=== PATIENT | male | born 1945 | race Caucasian/White ===

== ENCOUNTER → 2020-08-01 10:37 | Outpatient (BNVA) | payer SELFPAY | PROVIDERS: Visit Provider Family Medicine | DX: I49.9 Cardiac arrhythmia, unspecified (principal); I10 Essential (primary) hypertension; Z13.220 Encounter for screening for lipoid disorders; Z13.6 Encounter for screening for cardiovascular disorders | CPT/HCPCS: 80053; 80061; 83735; 84443; 85025 ==

== ENCOUNTER → 2020-12-26 14:00 | Outpatient (BNVA) | payer SELFPAY | PROVIDERS: Visit Provider Family Medicine | DX: I12.9 Hypertensive chronic kidney disease with stage 1 through stage 4 chronic kidney disease, or unspecified chronic kidney disease (principal); J30.9 Allergic rhinitis, unspecified; G44.209 Tension-type headache, unspecified, not intractable; N18.2 Chronic kidney disease, stage 2 (mild); J30.1 Allergic rhinitis due to pollen | CPT/HCPCS: 80048 ==

== ENCOUNTER → 2021-03-28 14:37 | Outpatient (BNVA) | payer SELFPAY | PROVIDERS: Visit Provider Family Medicine | DX: I10 Essential (primary) hypertension (principal); I49.3 Ventricular premature depolarization; R73.09 Other abnormal glucose; Z13.1 Encounter for screening for diabetes mellitus; F17.200 Nicotine dependence, unspecified, uncomplicated; N18.2 Chronic kidney disease, stage 2 (mild) | CPT/HCPCS: 80053; 83036; 83735; 84443; 85025 ==

== ENCOUNTER 2021-05-24 10:44 | Outpatient (CLI) | payer SELFPAY ==
[2021-05-24 10:55] VITALS: BMI 22.1
--- NOTE | 2021-05-24 11:10 | ECG_ITS ---
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 Interpretive Statements NAME OF STUDY: LEXISCAN SESTAMIBI STRESS TEST INDICATION: Chest Pain PROCEDURE: At the baseline, the blood pressure was 164/83 mmHg, oxygen saturation 98% with a heart rate of 57 bpm. The electrocardiogram showed sinus bradycardia, right axis deviation with nonspecific T wave inversion.. The Lexiscan was infused over a period of 20 seconds. A total of 0.4 milligrams of Lexiscan was infused. The stress phase was continued for a total of 5 minutes. Heart rate at the end of the stress phase was 73 bpm, oxygen saturation 98% with a blood pressure of 124/73 mmHg. The EKG at the peak infusion revealed sinus rhythm with frequent PVCs in bigeminal pattern. No significant ST-T wave changes.. The study was terminated due to protocol completion. Sestamibi was injected 20 seconds after the Lexiscan infusion. Blood pressure at the end of the recovery phase was 146/71 mmHg, oxygen saturation 98% with a heart rate of 69 beats per minute. CONCLUSION: 1. No significant EKG changes with the LexiScan infusion 2. No LexiScan induced chest pain. Frequent PVCs were noted during stress and in recovery. 3. Normal blood pressure and heart rate response. 4. Sestamibi/sestamibi perfusion scan pending; see separate report. Electronically Signed On 05-29-2021 12:48:34 CDT by Seema Ochoa M.D. [id number]
--- NOTE | 2021-05-24 11:11 | NMCV_ITS ---
NM santhosh perf SPECT r/s* [id number] Jay Sharp Age: 76 Gender: M : 1945 Exam Date: 05/24/2021 12:02 Ordering Phys: Seema Ochoa MD ([email or web address]) Technologist: LINDA Atwood Exam Location: [facility] Indications: HYPERTENSION STRESS TEST Please see separate stress test report in [facility] for full findings IMAGE PROTOCOL Rest/Stress 1 Lexiscan Day Radiopharmaceutical Dose (mCi) Administration Site Administered by Rest: Tc-99m 10.5 IV LINDA Atwood Sestamibi Stress:Tc-99m 32.5 IV LINDA Haywood Sestamibi Rest: 24-May-2021 60 Discovery 630 Stress: 24-May-2021 30 Discovery 630 0.4mg Lexiscan. Supine position only as patient was unable to lay prone. SPECT RESULTS Technical Quality: Excellent Raw Data Analysis: Normal Image Corrections: No attenuation or motion correction applied Summed Stress Score: 2 Summed Rest Score: 2 Summed Difference Score: 0 PERFUSION FINDINGS Small size perfusion abnormality of mild severity of apical inferior and apical galindo on rest and stress images. FUNCTIONAL RESULTS (calculated via Gated SPECT) Stress Image LV EF (%): 73 Stress EDV (mL):102 TID: 1 Stress ESV (mL):28 FUNCTIONAL FINDINGS: The left ventricle is normal in size. Transient Ischemia Dilatation of 1. There is normal left ventricular systolic function. The left ventricular ejection fraction is normal with a value of 73%. There is normal left ventricular wall thickening with no regional wall motion abnormality. Normal end-diastolic and end-systolic volumes. IMPRESSIONS 1. Small sized fixed perfusion abnormality of mild severity of apical inferior and apical galindo. 2. This may represent old myocardial infarction and right coronary artery territory or attenuation artifact. 3. Overall left ventricular systolic function is normal without regional wall motion abnormalities, LVEF=73%. 4. EKG portion of the study will be reported separately. 5. No coronary ischemia based on the study. Seema Ochoa MD (Electronically Signed) Final Date: 26 May 2021 18:10 S
[2021-05-24 12:50] VITALS: BP 146/71; PULSE 73
[2021-05-24] MEDS: regadenoson 0.4 Mg/5 ml Syringe IVP (12:52)
== END 2021-05-24 10:45 | disposition home or self-care (01) ==
PROVIDERS: PCP Family Medicine; Visit Provider Internal Medicine Cardiovascular Disease
DX: R06.02 Shortness of breath (principal); R00.2 Palpitations; R07.9 Chest pain, unspecified; I10 Essential (primary) hypertension; R94.39 Abnormal result of other cardiovascular function study
CPT/HCPCS: 78452; 93017; A9500; J2785

== ENCOUNTER 2021-06-28 14:50 | Outpatient (CLI) | payer SELFPAY ==
--- NOTE | 2021-06-28 14:53 | USCV_ITS ---
Jay Sharp Age: 76 Gender: M : 1945 Exam Date: 06/28/2021 15:10 Ordering Phys: Seema Ochoa MD ([email or web address]) Technologist: Johny Muller [place] [facility] [place]: Frequent PVC's BP: 170 / 80 HR: 47 Rhythm: Sinus Technical Quality: Good MEASUREMENTS (Male / Female) Normal Values 2D ECHO LV Diastolic Diameter PLAX 5.1 cm 4.2 - 5.9 / 3.9 - 5.3 cm LV Systolic Diameter PLAX 3.5 cm IVS Diastolic Thickness 0.7 cm 0.6 - 1.0 / 0.6 - 0.9 cm IVS Systolic Thickness 1.4 cm LVPW Diastolic Thickness 1.0 cm 0.6 - 1.0 / 0.6 - 0.9 cm LVPW Systolic Thickness 1.2 cm LVOT Diameter 2.0 cm LV Ejection Fraction 2D Teich 46.9 % LV Ejection Fraction MOD 2C 52.4 % LV Ejection Fraction 2C AL 51.9 % LA Diameter 3.1 cm LA Width 4.5 cm LA Height 5.1 cm RA Width 3.6 cm RA Height 5.6 cm Aorta at Sinotubular Diameter 2.8 cm DOPPLER AV Peak Velocity 121.0 cm/s LVOT Peak Velocity 72.0 cm/s AV Area Cont Eq vti 2.2 cm squared AV Area Cont Eq pk 1.9 cm squared MV Area PHT 5.0 cm squared Mitral E to A Ratio 0.9 MV E' Velocity 50.0 cm/s Mitral E to MV E' Ratio 9.1 Mitral E to LV E' Lateral Ratio 11.8 Mitral E to LV E' Septal Ratio 7.4 TR Peak Velocity 263.7 cm/s TR Peak Gradient 27.8 mmHg TV Peak E Velocity 78.0 cm/s Right Atrial Pressure 3.0 mmHg Pulmonary Artery Systolic Pressu 30.8 mmHg FINDINGS Left Ventricle Normal left ventricular size, systolic function and wall thickness, with no regional wall motion abnormalities. Left ventricular ejection fraction is estimated at 55-60 %. Normal diastolic function. Right Ventricle Normal right ventricular size and systolic function. Right ventricular systolic pressure 30.8 mmHg. Right Atrium Normal right atrial size. Right atrial pressure estimated at 3 mm Hg. Left Atrium Mildly increased left atrial size. Mitral Valve Structurally normal mitral valve. No mitral valve stenosis. Mild to moderate mitral valve regurgitation. Aortic Valve Structurally normal trileaflet aortic valve. No aortic valve stenosis. No aortic valve regurgitation. Tricuspid Valve Structurally normal tricuspid valve. No tricuspid valve stenosis. Mild tricuspid valve regurgitation. Pulmonic Valve Structurally normal pulmonic valve. No pulmonary valve stenosis. Mild pulmonary valve regurgitation. Pericardium No pericardial effusion. Aorta Normal size aortic root and proximal ascending aorta. Normal- sized inferior vena cava with normal respiratory variation. CONCLUSIONS 1. Normal left ventricular size, systolic function and wall thickness, with no regional wall motion abnormalities. Left ventricular ejection fraction is estimated at 55-60 %. Normal diastolic function. 2. Mild pulmonary and tricuspid valve regurgitation. 3. Mild to moderate mitral valve regurgitation. 4. Pulmonary artery pressure estimated at 31 mm Hg. 5. No prior similar studies to compare. Seema Ochoa MD (Electronically Signed) Final Date: 02 July 2021 07:33 S
== END 2021-06-28 14:51 | disposition home or self-care (01) ==
LOC: RAD 14:52
PROVIDERS: PCP Family Medicine; Visit Provider Internal Medicine Cardiovascular Disease
DX: I49.3 Ventricular premature depolarization (principal); I08.1 Rheumatic disorders of both mitral and tricuspid valves; I37.1 Nonrheumatic pulmonary valve insufficiency; R06.02 Shortness of breath
CPT/HCPCS: 93306

== ENCOUNTER → 2021-07-05 09:58 | Outpatient (BNVA) | payer SELFPAY | PROVIDERS: PCP Family Medicine; Visit Provider Family Medicine | DX: D56.9 Thalassemia, unspecified (principal); Z13.220 Encounter for screening for lipoid disorders; Z13.6 Encounter for screening for cardiovascular disorders; N18.2 Chronic kidney disease, stage 2 (mild); I12.9 Hypertensive chronic kidney disease with stage 1 through stage 4 chronic kidney disease, or unspecified chronic kidney disease | CPT/HCPCS: 80048; 80061; 83735; 83880; 85007; 85027 ==

== ENCOUNTER → 2021-10-06 10:12 | Outpatient (BNVA) | payer OTHER, SELFPAY | PROVIDERS: PCP Family Medicine; Visit Provider Emergency Medicine | DX: Z20.822 Contact with and (suspected) exposure to COVID-19 (principal) | CPT/HCPCS: 87635 ==

== ENCOUNTER → 2021-12-27 11:36 | Outpatient (BNVA) | payer SELFPAY | PROVIDERS: PCP Family Medicine; Visit Provider Internal Medicine Cardiovascular Disease | DX: I10 Essential (primary) hypertension (principal); Z51.81 Encounter for therapeutic drug level monitoring; Z79.899 Other long term (current) drug therapy | CPT/HCPCS: 80048; 80076; 84443 ==

== ENCOUNTER → 2022-01-18 09:07 | Outpatient (BNVA) | payer SELFPAY | PROVIDERS: PCP Family Medicine; Visit Provider Family Medicine | DX: N18.2 Chronic kidney disease, stage 2 (mild) (principal) | CPT/HCPCS: 80048 ==

== ENCOUNTER → 2022-03-13 13:48 | Outpatient (BNVA) | payer SELFPAY | PROVIDERS: PCP Family Medicine; Visit Provider Internal Medicine | DX: N18.9 Chronic kidney disease, unspecified (principal); I10 Essential (primary) hypertension; Z79.899 Other long term (current) drug therapy | CPT/HCPCS: 80069; 82310; 82570; 82652; 83735; 83970; 84156; 85025 ==

== ENCOUNTER 2022-03-15 11:15 | Observation (INO) | payer SELFPAY ==
[2022-03-15] VITALS (10 sets, daily range): BP systolic 110–150; BP diastolic 57–71; PULSE 63–82; RESP 16–19; TEMP 36.8–37; O2SAT 95–99; BMI 21.5; BMI 21.9
--- NOTE | 2022-03-15 11:32 | ECG_ITS ---
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 Measurements Intervals [place] Rate: 68 P: 58 MS: 209 QRS: 101 QRSD: 114 T: 68 QT: 393 QTc: 420 Interpretive Statements SINUS RHYTHM RIGHT AXIS DEVIATION [QRS AXIS > 100] MODERATE INTRAVENTRICULAR CONDUCTION DELAY [110+ ms QRS DURATION] INTERPRETATION BASED ON A DEFAULT AGE OF 40 YEARS No previous ECG available for comparison Electronically Signed On 03-16-2022 12:20:52 CDT by Maxwell Shaver M.D. [id number]
[2022-03-15 12:08] LABS: Alanine Aminotransferase 19 U/L (0-41); Albumin Level 4.6 g/dL (3.5-5.2); Alkaline Phosphatase 75 IU/L (40-130); Anion Gap 20.6 (5-19); Aspartate Amino Transferase 19 U/L (0-40); Blood Urea Nitrogen 60 mg/dL (8-23); Calcium 9.1 mg/dL (8.5-10.5); Carbon Dioxide 15 mmol/L (22-29); Chloride 103 mmol/L (98-107); Globulin 3.4 g/dL (1.3-4.6); Glucose 109 mg/dL (65-115); Osmolality Calculated 291 mOsm/kg (285-295); Sodium 132 mmol/L (136-145); Total Bilirubin 0.3 mg/dL (0.15-1.2)
[2022-03-15 12:15] LABS: Potassium 6.6 mmol/L (3.5-5.1)
--- NOTE | 2022-03-15 12:58 | XR_ITS ---
WS: [id number] PORTABLE CHEST HISTORY: dyspnea/cough COMPARISON: None available. Mild pulmonary hyperinflation. Subsegmental atelectasis or scar at the LEFT lung base. No mass or pne umonia. Normal vasculature. No pleural effusion or pneumothorax. Cardiac size: Mildly enlarged cardiac silhouette. Mediastinum/Aorta: Normal mediastinum. No osseous abnormality seen. XR/XR chest 1V portable [id number] IMPRESSION: Chronic emphysema. No pneumonia.
[2022-03-15] MEDS: sodium polystyrene sulfonate 15 gm/60 mL Btl 30 GM PO (13:05)
[2022-03-15] MEDS: sodium bicarbonate 8.4% 1 mEq/mL 50mL Syr 100 MEQ IVP (13:06)
[2022-03-15] MEDS: calcium chloride 10% Syr 10 mL 1 GM IVP (13:06)
[2022-03-15 13:31] LABS: Add Urine Microscopic? NO; Charge for UA Resulting for Rev
[2022-03-15 13:32] LABS: Bilirubin Urine Neg (Negative); Blood Urine Neg (Negative); Glucose Urine UA Norm (Normal); Ketones Urine Negative (Negative); Leukocyte Esterase Urine Negative (Negative); Nitrate Urine Negative (Negative); Protein Urine Neg (Negative); Urine Appearance Clear (CLEAR); Urine Color Yellow (Yellow); Urobilinogen Urine Norm (Negative); pH Urine 5 (5-7)
[2022-03-15 14:14] LABS: Magnesium 2.2 mg/dL (1.7-2.3)
--- NOTE | 2022-03-15 14:39 | ED_ITS ---
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 He had blood test done 2 days ago and his potassium was elevated he returns for reevaluation he is on lisinopril and Lasix has not changed doses lately. He has still had regular urine output. He has not had any chest pain dysuria urgency or frequency no difficulty with voiding. No abdominal pain. MD complaint: abnormal lab Initial visit (ago): day(s) Returns today for: called because of abnormal lab/test Symptoms since prior visit: no new symptoms Context: called for abnormal lab result Associated symptoms: none Review of Systems Const: Denies: fever(s), chills, body aches, change in appetite, fatigue or malaise ENMT: Denies: throat pain, ear or mastoid pain, nasal discharge or nasal congestion Card: Denies: chest pain, edema, dyspnea on exertion or orthopnea Resp: Denies: dyspnea, productive cough or non-productive cough GI: Denies: abdominal pain, nausea, vomiting, hematemesis, coffee ground emesis, diarrhea, constipation, bloating, hematochezia or melena : Denies: flank pain, dysuria, urinary frequency or urinary urgency Skin/Breast: Denies: rash or pruritus PFSH ED PFSH: Medical History Allergic rhinitis Bradycardia CKD (chronic kidney disease) Depression Hypertension did not tolerate nifedipine Smoking Tension headache Thalassemia Surgical History No pertinent past surgical history Family History Father Arrhythmia Sister Arrhythmia Other Thalassemia Denies family history of Diabetes Stroke Social History Smoking and tobacco status: former smoker Alcohol intake: former Year of sobriety/quit date alcohol: 1994 Substance/Drug Use: never Caregiver/support person: Yes Lives independently: Yes Household members: spouse Housing: House Marital status: History of recent travel: No Current gender identity: Male Physical Exam Const: COMMON NORMALS: no acute distress GENERAL APPEARANCE: cooperative and comfortable ORIENTATION/CONSCIOUSNESS: Yes awake, Yes oriented to person, Yes oriented to place and Yes oriented to time HENMT: COMMON NORMALS: normocephalic, atraumatic and hearing grossly normal bilaterally HEAD & SCALP: normocephalic and atraumatic Neck/C-Spine: COMMON NORMALS: no JVD Resp: COMMON NORMALS: normal respiratory effort, No retractions, No use of accessory muscles and clear to auscultation bilaterally AUSCULTATION: clear to auscultation bilaterally Cardio: COMMON NORMALS: no JVD, regular rate, regular rhythm and No murmurs present (Cardio) RATE: regular rate RHYTHM: regular rhythm GI: COMMON NORMALS: Soft to palpation and No hepatosplenomegaly present AUSCULTATION: Yes normoactive bowel sounds PALPATION: Yes Soft to palpation, No Tenderness to palpation present (GI), No Guarding due to palpation present (GI) and Yes No hepatosplenomegaly present Extremity: COMMON NORMALS: normal to inspection, capillary refill normal, no clubbing, cyanosis or edema, no calf tenderness and no pedal edema Neuro: SENSORIUM/ORIENTATION: Yes oriented to person, Yes oriented to place and Yes oriented to time Skin: COMMON NORMALS: no rashes or lesions noted GENERAL SKIN EXAM: no rashes or lesions noted Course Vital Signs: Vital signs: Vital Signs Temperature 97.8 F 03/16/22 12:28 Pulse Rate 65 03/16/22 12:28 Respiratory Rate 16 03/16/22 12:28 Blood Pressure 123/57 03/16/22 12:28 Pulse Oximetry 97 03/16/22 12:28 MDM - Recheck/Abnormal Lab/Rx Medical Decision Making Significant hypokalemia. Usual measures initiated. Will admit consult nephrology admit to hospitalist orders written Medical Records I reviewed the patient's medical records. Lab Data I reviewed the patient's lab results. : 03/16/22 04:10 03/16/22 04:10 Radiology Impressions Chest X-Ray 03/15/22 12:58 IMPRESSION: Chronic emphysema. No pneumonia. Laboratory Results Sodium 132 mmol/L (136-145) L 03/15/22 11:46 Potassium 6.6 mmol/L (3.5-5.1) H* 03/15/22 11:46 Chloride 103 mmol/L (98-107) 03/15/22 11:46 Carbon Dioxide 15 mmol/L (22-29) L 03/15/22 11:46 Anion Gap 20.6 (5-19) H 03/15/22 11:46 BUN 60 mg/dL (8-23) H 03/15/22 11:46 Creatinine 2.8 mg/dL (0.7-1.2) H 03/15/22 11:46 GFR Calculation Not Reportable 03/15/22 11:46 Glucose 109 mg/dL (65-115) 03/15/22 11:46 Calculated Osmolality 291 mOsm/kg (285-295) 03/15/22 11:46 Calcium 9.1 mg/dL (8.5-10.5) 03/15/22 11:46 Magnesium 2.2 mg/dL (1.7-2.3) 03/15/22 11:46 Iron 67 ug/dL (59-158) 03/15/22 11:46 TIBC 245 mcg/dl 03/15/22 11:46 % Saturation 27.3 % (20-50) 03/15/22 11:46 Unsat Iron Binding 178 ug/dL (112-347) 03/15/22 11:46 Total Bilirubin 0.3 mg/dL (0.15-1.2) 03/15/22 11:46 AST 19 U/L (0-40) 03/15/22 11:46 ALT 19 U/L (0-41) 03/15/22 11:46 Alkaline Phosphatase 75 IU/L (40-130) 03/15/22 11:46 Total Protein 8.0 g/dL (6.6-8.7) 03/15/22 11:46 Albumin 4.6 g/dL (3.5-5.2) 03/15/22 11:46 Globulin 3.4 g/dL (1.3-4.6) 03/15/22 11:46 Urine Color Yellow (Yellow) 03/15/22 13:22 Urine Appearance Clear (CLEAR) 03/15/22 13:22 Urine pH 5 (5-7) 03/15/22 13:22 Ur Specific [place] 1.010 (1.005-1.030) 03/15/22 13:22 Urine Protein Neg (Negative) 03/15/22 13:22 Urine Glucose (UA) Norm (Normal) 03/15/22 13:22 Urine Ketones Negative (Negative) 03/15/22 13:22 Urine Blood Neg (Negative) 03/15/22 13:22 Urine Nitrate Negative (Negative) 03/15/22 13:22 Urine Bilirubin Neg (Negative) 03/15/22 13:22 Urine Urobilinogen Norm mg/dL (Negative) 03/15/22 13:22 Ur Leukocyte Esterase Negative (Negative) 03/15/22 13:22 Ur Random Sodium 47 mmol/L 03/15/22 13:22 Ur Random Potassium 24 mmol/L 03/15/22 13:22 Ur Random Chloride 39 mmol/L 03/15/22 13:22 Urine Creatinine 69 mg/dL (39-259) 03/15/22 13:22 Discharge Plan Discharge Patient Disposition: Admitted As Inpatient Admit Provider: Berny Valero Clinical Impression: Hyperkalemia, Chronic kidney disease (CKD), Hypertension Condition: Stable Discharge Orders: Discharge Order (Routine); Ordered 03/16/22 Ordered By: Berny Valero Discharge Diet: Cardiac Discharge Activity: Resume usual activity and Increase activity as tolerated Coding Level of Care Code ED Cigarette Paper Tester for Karma Ferrell
--- NOTE | 2022-03-15 15:40 | P.HP_ITS ---
Providers/Chief Complaint Admitting Physician: Berny Valero MD Primary Care Provider: Amrita Restrepo MD Chief Complaint: pcp sent due to potassium History of Present Illness Jay Sharp is a 76 year old male with past medical history of hypertension, COVID-19 from September 2021, CKD with baseline creatinine around 1.7-2, hyperkalemia with potassium of around 5.2-5.7, palpitations, bradycardia, CAD who was sent to the ER today via his business banking manager because of hyperkalemia seen on regular blood work. His potassium on the blood work done on 01/11 was 6.3 with creatinine of 2.9. Patient denied of having any palpitations, nausea vomiting, abdominal pain, dizziness, diarrhea. He is not really sure of any changes in his medications other than lisinopril dose being cut down from 40 mg to 20 mg recently by his primary care provider for hyperkalemia. Today's blood work showed sodium 132, potassium 6.6, creatinine of 2.8, BUN of 60. In the ER he was given 1 dose of calcium, 1 dose of sodium bicarbonate, 1 dose of Kayexalate 30 mg. Examination his pulse is 65 without any tall T waves on the monitor, blood pressure 134/50, saturating 99% on room air. Review of Systems General: Reports: 10 or more systems reviewed and unremarkable except in HPI and below Const: Denies: fever(s), chills, body aches, change in appetite, change in weight, malaise, night sweats, diaphoresis, change in sleep pattern, daytime sleepiness or snoring Eyes: Denies: change in vision, blurry vision, photophobia, eye discomfort or eye discharge ENMT: Denies: throat pain, enlarged tonsils, hoarseness, mouth pain, oral so res, dry mouth, tinnitus, nasal congestion or post nasal drip Card: Denies: chest pain, palpitations, irregular heart rhythm, edema, swelling of feet/ankles, lightheadedness, syncope, pre-syncope, dyspnea on exertion, orthopnea, leg pain with exertion or acrocyanosis Resp: Denies: dyspnea, productive cough, non-productive cough, wheezing, stridor, pain on inspiration, change in phlegm color, hemoptysis or chest congestion GI: Denies: abdominal pain, nausea, vomiting, hematemesis, coffee ground emesis, dysphagia, heartburn, diarrhea, constipation, bloating, GI cramping, change in bowel habits, pain on defecation, hematochezia or melena : Denies: flank pain, difficulty urinating, dysuria, urinary frequency, urinary urgency, urinary hesitancy, urinary dribbling, difficulty starting urination, change in urine stream, nocturia or hematuria Musc: Denies: neck pain, back pain, extremity pain, joint pain, joint swelling, joint redness, joint stiffness or limited range of motion Neuro: Denies: headache(s), numbness in extremities, weakness in extremities, sensory changes, lack of coordination, difficulty walking, frequent falls, dizziness, vertigo, confusion, Slurred speech present, difficulty communicating thoughts or seizure-like activity Psych: Denies: anxiety, depression, mood swings, panic attacks, hopelessness or irritability Endo: Denies: polyuria, polydipsia, tired all the time, cold intolerance, excessive sweating, flushing or heat intolerance Saad/Lymph: Denies: easy bruising or easy bleeding All/Imm: Denies: tongue swelling, facial swelling or acute wheezing Medications/Allergies Home Medications Medication Instructions Recorded Confirmed Last Taken Type aspirin 325 mg tablet 325 mg PO BID 09/27/20 03/15/22 03/15/22 History hydralazine 25 mg tablet 25 mg PO TID PRN #30 tab 07/12/21 03/15/22 Unknown Rx amlodipine 10 mg tablet 10 mg PO DAILY #90 tab 07/26/21 03/15/22 03/15/22 Rx amiodarone 200 mg tablet 200 mg PO DAILY #90 tab 09/18/21 03/15/22 03/15/22 Rx hydrochlorothiazide 25 mg tablet 25 mg PO DAILY 90 Days #90 tab 12/20/21 03/15/22 03/15/22 Rx loratadine 10 mg tablet 10 mg PO DAILY 90 Days #90 tab 12/20/21 03/15/22 03/15/22 Rx clonidine HCl 0.1 mg tablet 0.1 mg PO BEDTIME 03/15/22 03/15/22 03/14/22 History folic acid 1 mg tablet 1 mg PO DAILY 03/15/22 03/15/22 03/15/22 History lisinopril 40 mg tablet 20 mg PO DAILY 03/15/22 03/15/22 03/15/22 History pravastatin 10 mg tablet 10 mg PO BEDTIME 03/15/22 03/15/22 03/14/22 History Allergies Allergy/AdvReac Type Severity Reaction Status Date / Time No Known Allergies Allergy Verified 12/20/21 07:01 PFSH Acute PFSH: Medical History (Updated 03/15/22 @ 15:44 by Berny Valero MD) Allergic rhinitis Bradycardia CKD (chronic kidney disease) Depression Hypertension did not tolerate nifedipine Smoking Tension headache Thalassemia Surgical History No pertinent past surgical history Family History Father Arrhythmia Sister Arrhythmia Other Thalassemia Denies family history of Diabetes Stroke Social History (Updated 03/15/22 @ 15:45 by Berny Valero MD) Smoking and tobacco status: former smoker Alcohol intake: former Year of sobriety/quit date alcohol: 1994 Substance/Drug Use: never Caregiver/support person: Yes Lives independently: Yes Household members: spouse Housing: House Marital status: History of recent travel: No Current gender identity: Male Vitals/I&O/Wt Last Vital Signs Temp 98.2 F 03/15/22 11:29 Pulse 65 03/15/22 13:09 Resp 16 03/15/22 13:09 BP 134/57 03/15/22 13:09 Pulse Ox 99 03/15/22 13:09 Weight last 48 hrs Weight 68.039 kg Physical Exam Narrative: General: No acute distress, AO x3, dehydrated, pallor present HEENT: PERRLA, pupils bilaterally equal and reactive Chest: Normal vesicular breath sounds, no added sounds, equal good air entry bilaterally CVS: S1-S2 regular, no murmurs, no tachycardia, no gallops, no rubs Abdomen: Soft, nontender, no organomegaly, bowel sounds present Neuro: No focal deficits, no facial deformity, AO x3, power 5/5 in all limbs Data : 03/15/22 11:46 A&P Assessment and plan (1) Hyperkalemia: Given calcium, sodium bicarbonate, Kayexalate in the ER Will give 1 dose of D50, 10 units insulin. Check BMP after dose of insulin 10 units. Monitor BMP every 12 hourly for now. Will repeat Kayexalate depending on the repeat potassium. Hold off on lisinopril for now. Hold hydrochlorothiazide for now. Status: Acute (2) CKD (chronic kidney disease): Baseline creatinine around 1.7-2. Currently 2.9. Follows up with outpatient business banking manager in [place]. Gentle IV hydration with normal saline at 75 cc/h for 1 bag. Status: Acute Qualifiers: Chronic kidney disease stage: stage 2 (mild) Qualified Code(s): N18.2 - Chronic kidney disease, stage 2 (mild) (3) Hypertension: Goal blood pressure less than 140/90 mmHg. Hold off on lisinopril for now given hyperkalemia. Continuing home dose of amlodipine, clonidine, hydralazine. Status: Acute Qualifiers: Hypertension type: essential hypertension Qualified Code(s): I10 - Essential (primary) hypertension Plan Analgesia:Tylenol Glycemic control:NAD Nutrition:Renal non dialysis CODE STATUS: Full code PUD prophylaxis: Pepcid DVT prophylaxis:SCD, observation admission for chronic medical. Admit to [facility] with telemetry. Attestations Medical Necessity Statement*: Admitted under observation for hyperkalemia in setting of CKD Time Spent in Patient Care: Greater than 35 minutes Coding Level of Care Code Acute Search Consultant for [facility] Fwd Diagnoses Hyperkalemia E87.5 CKD (chronic kidney disease) N18.2 Chronic kidney disease stage: stage 2 (mild) Hypertension I10 Hypertension type: essential hypertension
[2022-03-15] MEDS: insulin regular-human 100 units/1 mL 10 UNIT IVP (16:38)
[2022-03-15] MEDS: dextrose 50% syringe 50 mL IVP (16:40)
[2022-03-15 17:23] LABS: Basophils # 0.1 10^3/uL (0.0-0.1); Basophils % 1.6 %; Eosinophils # 0.3 10^3/uL (0.0-0.8); Hematocrit 31.3 % (42.0-52.0); Hemoglobin 9.8 g/dL (11.7-16.6); Lymphocytes # 0.9 10^3/uL (0.8-4.8); Lymphocytes % 10.6 %; Mean Corpuscular HGB Conc 31.3 g/dL (30.0-36.0); Mean Corpuscular Hemoglobin 18.7 pg (28.0-34.0); Mean Corpuscular Volume 59.6 fl (80-94); Monocytes # 0.5 10^3/uL (0.2-0.9); Monocytes % 6.4 %; Neutrophils # 6.49 10^3/uL (1.8-7.7); Neutrophils % 77.7 %; Nucleated Red Blood Cells % 0 %; Platelet Count 273 10^3/cmm (130-400); Red Blood Count 5.25 10^6/uL (4.1-5.3); Red Cell Distribution Width 18.6 % (12.1-15.1); White Blood Count 8.3 10^3/uL (4.0-10.0)
[2022-03-15 17:45] LABS: Anion Gap 19.8 (5-19); Blood Urea Nitrogen 60 mg/dL (8-23); Calcium 9.8 mg/dL (8.5-10.5); Carbon Dioxide 16 mmol/L (22-29); Chloride 105 mmol/L (98-107); Glucose 123 mg/dL (65-115); Osmolality Calculated 300 mOsm/kg (285-295); Potassium 4.8 mmol/L (3.5-5.1); Sodium 136 mmol/L (136-145); Thyroid Stimulating Hormone 1.22 uIU/mL (0.27-4.20)
[2022-03-15 18:08] LABS: Slide Review Slide Review Perform
[2022-03-15 18:08] LABS: Iron 67 ug/dL (59-158); Percent Saturation 27.3 % (20-50); Total Iron Binding Capacity 245 mcg/dl; Unsaturated Iron Binding 178 ug/dL (112-347)
[2022-03-15] MEDS: nicotine 14 mg Patch 1 PATCH TRANSDERMA (19:13)
[2022-03-15] MEDS: atorvastatin 40 mg Tablet 20 MG PO (19:15)
[2022-03-15] MEDS: cloNIDine 0.1 mg Tablet PO (19:15)
[2022-03-15] MEDS: sodium chloride 0.9% 1,000 ML 75 ML IV (19:16)
[2022-03-15 20:09] LABS: Potassium, Radom Urine 24 mmol/L; Urine Creatinine 69 mg/dL (39-259); Urine Random Chloride 39 mmol/L; Urine Random Sodium 47 mmol/L
[2022-03-16] VITALS: BP 112/59; PULSE 69; RESP 18; TEMP 36.9; O2SAT 96
[2022-03-16 04:00] VITALS: BP 108/61; PULSE 64; RESP 16; TEMP 37; O2SAT 97
[2022-03-16 04:45] LABS: Basophils # 0.1 10^3/uL (0.0-0.1); Basophils % 1.1 %; Eosinophils # 0.4 10^3/uL (0.0-0.8); Eosinophils % 4.5 %; Hematocrit 26.3 % (42.0-52.0); Hemoglobin 8.4 g/dL (11.7-16.6); Lymphocytes # 1.3 10^3/uL (0.8-4.8); Lymphocytes % 13.8 %; Mean Corpuscular HGB Conc 31.9 g/dL (30.0-36.0); Mean Corpuscular Volume 59.6 fl (80-94); Monocytes % 10.9 %; Neutrophils # 6.22 10^3/uL (1.8-7.7); Neutrophils % 68.9 %; Nucleated Red Blood Cells % 0.2 %; Platelet Count 251 10^3/cmm (130-400); Red Blood Count 4.41 10^6/uL (4.1-5.3); Red Cell Distribution Width 17.5 % (12.1-15.1)
[2022-03-16 05:05] LABS: Alanine Aminotransferase 15 U/L (0-41); Albumin Level 3.7 g/dL (3.5-5.2); Alkaline Phosphatase 64 IU/L (40-130); Anion Gap 16.1 (5-19); Aspartate Amino Transferase 17 U/L (0-40); Blood Urea Nitrogen 55 mg/dL (8-23); Carbon Dioxide 21 mmol/L (22-29); Chloride 106 mmol/L (98-107); Globulin 2.9 g/dL (1.3-4.6); Glucose 83 mg/dL (65-115); Magnesium 1.9 mg/dL (1.7-2.3); Osmolality Calculated 300 mOsm/kg (285-295); Phosphorus 4.6 mg/dL (2.5-4.5); Potassium 5.1 mmol/L (3.5-5.1); Sodium 138 mmol/L (136-145); Total Bilirubin 0.3 mg/dL (0.15-1.2); Total Protein 6.6 g/dL (6.6-8.7)
[2022-03-16 05:08] VITALS: PULSE 69
[2022-03-16 05:24] LABS: Add RBC Morph Yes
[2022-03-16 05:25] LABS: Mean Platelet Volume 12.3 fL (7.4-10.4); RBC Morph Comp No
[2022-03-16 05:26] LABS: Anisocytosis 1+; Hypochromasia 3+; Ovalocytes 1+; Poikilocytosis 1+; Target Cells 2+
[2022-03-16 05:28] LABS: Acanthocytes 1+; Basophilic Stippling Trace; Polychromasia Trace
[2022-03-16 07:50] VITALS: BP 123/57; PULSE 65; RESP 16; TEMP 36.6; O2SAT 97
[2022-03-16] MEDS: nicotine 14 mg Patch 1 PATCH TRANSDERMA (09:24)
[2022-03-16] MEDS: folic acid 1 mg Tablet PO (09:24)
[2022-03-16] MEDS: amlodipine 10 mg Tablet PO (09:24)
[2022-03-16] MEDS: aspirin 325 mg Tablet PO (09:24)
[2022-03-16] MEDS: amiodarone 200 mg Tablet PO (09:24)
[2022-03-16] MEDS: pantoprazole DR 40 mg Tablet PO (09:24)
--- NOTE | 2022-03-16 11:50 | P.DS_ITS ---
Discharge Providers Date of Admission: 03/15/22 14:59 Date of Discharge: March 16, 2022 Attending Provider at Admission: Berny Valero MD Attending Provider at Discharge: Berny Valero MD Primary Care Provider: Amrita Restrepo MD Diagnoses at Discharge Discharge Diagnosis (1) Hyperkalemia: Status: Acute (2) CKD (chronic kidney disease): Status: Acute Qualifiers: Chronic kidney disease stage: stage 2 (mild) Qualified Code(s): N18.2 - Chronic kidney disease, stage 2 (mild) (3) Hypertension: Status: Acute Qualifiers: Hypertension type: essential hypertension Qualified Code(s): I10 - Essential (primary) hypertension Permanent problem details: did not tolerate nifedipine Reason for Visit Reason for Visit: pcp sent due to potassium Hospital Course Hospital Course Jay Sharp is a 76 year old male with past medical history of hypertension, COVID-19 from September 2021, CKD with baseline creatinine around 1.7-2, hyperkalemia with potassium of around 5.2-5.7, palpitations, bradycardia, CAD who was sent to the ER today via his animal bounty hunter because of hyperkalemia seen on regular blood work.? His potassium on the blood work done on 01/11 was 6.3 with creatinine of 2.9.? Patient denied of having any palpitations, nausea vomiting, abdominal pain, dizziness, diarrhea.? He is not really sure of any changes in his medications other than lisinopril dose being cut down from 40 mg to 20 mg recently by his primary care provider for hyperkalemia. Today's blood work showed sodium 132, potassium 6.6, creatinine of 2.8, BUN of 60.? In the ER he was given 1 dose of calcium, 1 dose of sodium bicarbonate, 1 dose of Kayexalate 30 mg. Examination his pulse is 65 without any tall T waves on the monitor, blood pressure 134/50, saturating 99% on room air. Patient was admitted to hospital under observation for hyperkalemia. He was treated on admission for hyperkalemia with Kayexalate, cocktail with IV calcium, IV insulin with dextrose and sodium bicarbonate. He responded well to the treatment and potassium levels came back within normal limits. His potassium level was getting elevated but with remained within normal limits. On admission he was found also found to be in acute kidney injury. He was started on IV fluids to which he responded well and kidney functions are improving to creatinine of 2.6 on the day of discharge. He has been discharged in hemodynamically stable condition with advised to not take lisinopril anymore. He is to check his BMP again within next 1 week with his primary care provider. Physical Exam Narrative: General: No acute distress, AO x3, dehydrated, pallor present HEENT: PERRLA, pupils bilaterally equal and reactive Chest: Normal vesicular breath sounds, no added sounds, equal good air entry bilaterally CVS: S1-S2 regular, no murmurs, no tachycardia, no gallops, no rubs Abdomen: Soft, nontender, no organomegaly, bowel sounds present Neuro: No focal deficits, no facial deformity, AO x3, power 5/5 in all limbs Discharge Data Studies Completed and Pending Completed Studies During Hospitalization Category Date Time Status XR chest 1V portable [id number] Stat Exams 03/15/22 12:58 Completed Radiology Impressions Chest X-Ray 03/15/22 12:58 IMPRESSION: Chronic emphysema. No pneumonia. Laboratory Results WBC 9.0 10^3/uL (4.0-10.0) 03/16/22 04:10 RBC 4.41 10^6/uL (4.1-5.3) 03/16/22 04:10 Hgb 8.4 g/dL (11.7-16.6) L 03/16/22 04:10 Hct 26.3 % (42.0-52.0) L 03/16/22 04:10 MCV 59.6 fl (80-94) L 03/16/22 04:10 MCH 19.0 pg (28.0-34.0) L 03/16/22 04:10 MCHC 31.9 g/dL (30.0-36.0) 03/16/22 04:10 RDW 17.5 % (12.1-15.1) H 03/16/22 04:10 Plt Count 251 10^3/cmm (130-400) 03/16/22 04:10 MPV 12.3 fL (7.4-10.4) H 03/16/22 04:10 Neut % (Auto) 68.9 % 03/16/22 04:10 Lymph % (Auto) 13.8 % 03/16/22 04:10 [place] % (Auto) 10.9 % 03/16/22 04:10 Eos % (Auto) 4.5 % 03/16/22 04:10 Baso % (Auto) 1.1 % 03/16/22 04:10 Neut # (Auto) 6.22 10^3/uL (1.8-7.7) 03/16/22 04:10 Lymph # (Auto) 1.3 10^3/uL (0.8-4.8) 03/16/22 04:10 [place] # (Auto) 1.0 10^3/uL (0.2-0.9) H 03/16/22 04:10 Eos # (Auto) 0.4 10^3/uL (0.0-0.8) 03/16/22 04:10 Baso # (Auto) 0.1 10^3/uL (0.0-0.1) 03/16/22 04:10 Nucleated RBC % (auto) 0.2 % 03/16/22 04:10 Nucleated RBCs # 0.0 /100WBC 03/16/22 04:10 Polychromasia Trace 03/16/22 04:10 Hypochromasia 3+ H 03/16/22 04:10 Poikilocytosis 1+ H 03/16/22 04:10 Basophilic Stippling Trace 03/16/22 04:10 Anisocytosis 1+ H 03/16/22 04:10 Target Cells 2+ H 03/16/22 04:10 Ovalocytes 1+ H 03/16/22 04:10 Acanthocytes (Spur) 1+ H 03/16/22 04:10 Sodium 138 mmol/L (136-145) 03/16/22 04:10 Potassium 5.1 mmol/L (3.5-5.1) 03/16/22 04:10 Chloride 106 mmol/L (98-107) 03/16/22 04:10 Carbon Dioxide 21 mmol/L (22-29) L 03/16/22 04:10 Anion Gap 16.1 (5-19) 03/16/22 04:10 BUN 55 mg/dL (8-23) H 03/16/22 04:10 Creatinine 2.6 mg/dL (0.7-1.2) H 03/16/22 04:10 GFR Calculation Not Reportable 03/16/22 04:10 Glucose 83 mg/dL (65-115) 03/16/22 04:10 Calculated Osmolality 300 mOsm/kg (285-295) H 03/16/22 04:10 Calcium 9.0 mg/dL (8.5-10.5) 03/16/22 04:10 Phosphorus 4.6 mg/dL (2.5-4.5) H 03/16/22 04:10 Magnesium 1.9 mg/dL (1.7-2.3) 03/16/22 04:10 Iron 67 ug/dL (59-158) 03/15/22 11:46 TIBC 245 mcg/dl 03/15/22 11:46 % Saturation 27.3 % (20-50) 03/15/22 11:46 Unsat Iron Binding 178 ug/dL (112-347) 03/15/22 11:46 Total Bilirubin 0.3 mg/dL (0.15-1.2) 03/16/22 04:10 AST 17 U/L (0-40) 03/16/22 04:10 ALT 15 U/L (0-41) 03/16/22 04:10 Alkaline Phosphatase 64 IU/L (40-130) 03/16/22 04:10 Total Protein 6.6 g/dL (6.6-8.7) 03/16/22 04:10 Albumin 3.7 g/dL (3.5-5.2) 03/16/22 04:10 Globulin 2.9 g/dL (1.3-4.6) 03/16/22 04:10 TSH 1.22 uIU/mL (0.27-4.20) 03/15/22 17:13 Urine Color Yellow (Yellow) 03/15/22 13:22 Urine Appearance Clear (CLEAR) 03/15/22 13:22 Urine pH 5 (5-7) 03/15/22 13:22 Ur Specific [place] 1.010 (1.005-1.030) 03/15/22 13:22 Urine Protein Neg (Negative) 03/15/22 13:22 Urine Glucose (UA) Norm (Normal) 03/15/22 13:22 Urine Ketones Negative (Negative) 03/15/22 13:22 Urine Blood Neg (Negative) 03/15/22 13:22 Urine Nitrate Negative (Negative) 03/15/22 13:22 Urine Bilirubin Neg (Negative) 03/15/22 13:22 Urine Urobilinogen Norm mg/dL (Negative) 03/15/22 13:22 Ur Leukocyte Esterase Negative (Negative) 03/15/22 13:22 Ur Random Sodium 47 mmol/L 03/15/22 13:22 Ur Random Potassium 24 mmol/L 03/15/22 13:22 Ur Random Chloride 39 mmol/L 03/15/22 13:22 Urine Creatinine 69 mg/dL (39-259) 03/15/22 13:22 Vitals Last Vital Signs Temp 97.8 F 03/16/22 07:50 Pulse 65 03/16/22 07:50 Resp 16 03/16/22 07:50 BP 123/57 03/16/22 07:50 Pulse Ox 97 03/16/22 07:50 Discharge Plan Discharge Patient Disposition: Home Condition: Stable Prescriptions: Continued aspirin 325 mg tablet 325 mg PO BID 0RF amlodipine 10 mg tablet 10 mg PO DAILY Qty: 90 3RF hydralazine 25 mg tablet 25 mg PO TID PRN (Reason: severe high blood pressure) Qty: 30 2RF Rx Instructions: only if Blood Pressure >160/>100 for over 15 min hydrochlorothiazide 25 mg tablet 25 mg PO DAILY 90 Days Qty: 90 1RF loratadine 10 mg tablet 10 mg PO DAILY 90 Days Qty: 90 3RF amiodarone 200 mg tablet 200 mg PO DAILY Qty: 90 3RF folic acid 1 mg Tablet 1 mg PO DAILY 0RF clonidine HCl 0.1 mg tablet 0.1 mg PO BEDTIME 0RF pravastatin 10 mg tablet 10 mg PO BEDTIME 0RF Discontinued lisinopril 40 mg tablet 20 mg PO DAILY 0RF Discharge Orders: Discharge Order (Routine); Ordered 03/16/22 Ordered By: Berny Valero Referrals: Amrita Restrepo MD [Primary Care Provider] - 7-10 days Discharge Diet: Cardiac Discharge Activity: Resume usual activity and Increase activity as tolerated Patient Instructions: Opioid Safety Activity Restrictions/Additional Instructions: Please make sure you drink up to 2 L of liquids daily. Do not take lisinopril anymore. Please check your kidney functions again with your primary care provider within next 1 week. Discharge Attestations Time Spent in Discharge Care*: greater than 30 min Specific Discharge Activities: educating patient, discussing with welfare case worker/social workers/dc planners, documenting/other paperwork and evaluating patient/reviewing data Status at Discharge: Cognitive status at discharge: cognitively intact , Behavioral status at discharge: cooperative , Functional status at discharge: independent ambulation , Overall status at discharge: patient is back to baseline Quality Metrics Clinical Quality Measures [ No reported AMI, CVA or VTE this stay] Coding Level of Care Code Acute Chg FW DC note Diagnoses Hyperkalemia E87.5 CKD (chronic kidney disease) N18.2 Chronic kidney disease stage: stage 2 (mild) Hypertension I10 Hypertension type: essential hypertension
[2022-03-16 12:00] VITALS: BP 130/64; PULSE 71; RESP 16; O2SAT 98
[2022-03-16 12:28] VITALS: BP 123/57; PULSE 65; RESP 16; TEMP 36.6; O2SAT 97
== END 2022-03-16 13:21 | disposition home or self-care (01) ==
LOC: ER 15:18 → MEDSURG 15:36
PROVIDERS: Admitting Provider Student in an Organized Health Care Education/Training Program; Emergency Provider Family Medicine; PCP Family Medicine; Visit Provider Student in an Organized Health Care Education/Training Program
DX: E87.5 Hyperkalemia (principal); Z86.16 Personal history of COVID-19; Z79.82 Long term (current) use of aspirin; F32.9 Major depressive disorder, single episode, unspecified; F17.210 Nicotine dependence, cigarettes, uncomplicated; I12.9 Hypertensive chronic kidney disease with stage 1 through stage 4 chronic kidney disease, or unspecified chronic kidney disease; N18.9 Chronic kidney disease, unspecified; Z87.891 Personal history of nicotine dependence
CPT/HCPCS: 36415; 71045; 80048; 80053; 81003; 82436; 82570; 83540; 83550; 83735; 84100; 84133; 84300; 84443; 85025; 93005; 94664; 96361; 96374; 96375; 99285; G0378; J1815; J3490; J7030

== ENCOUNTER → 2022-03-20 11:04 | Outpatient (BNVA) | payer SELFPAY | PROVIDERS: PCP Family Medicine; Visit Provider Emergency Medicine | DX: N18.9 Chronic kidney disease, unspecified (principal); E87.5 Hyperkalemia; T80.1XXA Vascular complications following infusion, transfusion and therapeutic injection, initial encounter; I80.9 Phlebitis and thrombophlebitis of unspecified site | CPT/HCPCS: 80048 ==

== ENCOUNTER → 2022-03-25 11:58 | Outpatient (BNVA) | payer SELFPAY | PROVIDERS: PCP Family Medicine; Visit Provider Family Medicine | DX: Z09 Encounter for follow-up examination after completed treatment for conditions other than malignant neoplasm (principal); I10 Essential (primary) hypertension; J30.9 Allergic rhinitis, unspecified; K59.00 Constipation, unspecified; E87.5 Hyperkalemia; K59.04 Chronic idiopathic constipation; N17.9 Acute kidney failure, unspecified | CPT/HCPCS: 80048; 81000 ==

== ENCOUNTER → 2022-04-10 15:02 | Outpatient (BNVA) | payer SELFPAY | PROVIDERS: PCP Family Medicine; Visit Provider Internal Medicine | DX: N18.9 Chronic kidney disease, unspecified (principal) | CPT/HCPCS: 80069; 81000; 82306; 82310; 82570; 83735; 83970; 84156; 85025 ==

== ENCOUNTER 2022-04-12 18:33 | Emergency (ER) | payer SELFPAY ==
[2022-04-12 18:40] VITALS: BP 177/91; PULSE 78; RESP 16; TEMP 36.6; O2SAT 99; BMI 20.7
--- NOTE | 2022-04-12 18:47 | ECG_ITS ---
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 Measurements Intervals [place] Rate: 80 P: 56 CA: 205 QRS: 108 QRSD: 105 T: 60 QT: 366 QTc: 422 Interpretive Statements SINUS RHYTHM RIGHT AXIS DEVIATION [QRS AXIS > 100] ST ELEVATION, CONSIDER INFERIOR INJURY Compared to ECG 03/15/2022 11:35:20 ST (T wave) deviation now present Intraventricular conduction delay no longer present Electronically Signed On 04-13-2022 11:56:53 CDT by Maxwell Shaver M.D. [email or web address]
--- NOTE | 2022-04-12 19:02 | W.ED.RECABL ---
HPI - Recheck/Abnormal Lab/Rx General: Chief Complaint: Recheck/Abnormal Lab/Rx Stated Complaint: Abnormal labs Time Seen by Provider: 04/12/22 18:46 Source: patient Mode of arrival: ambulatory Limitations: no limitations History of Present Illness: 77-year-old male states that he is got chronic kidney disease he is now on dialysis he states he had been admitted here 2 weeks ago for hyperkalemia. He states that his retail greeting card merchandiser oscar blood 2 days ago and called him and told him to come to the ER because his potassium was 6.5 on that blood draw. He states he has had some generalized weakness denies any other medical complaints denies any pain anywhere denies any vomiting or diarrhea. Review of Systems Const: Denies: fever(s), chills, body aches or change in appetite Eyes: Denies: blurry vision or eye discomfort ENMT: Denies: throat pain or dental pain Card: Denies: chest pain Resp: Denies: dyspnea GI: Denies: abdominal pain, nausea, vomiting or diarrhea : Denies: dysuria Musc: Denies: neck pain or back pain Skin/Breast: Denies: rash Neuro: Denies: headache(s) Psych: Denies: depression Saad/Lymph: Denies: easy bruising All/Imm: Denies: urticaria PFSH ED PFSH: Medical History Allergic rhinitis Bradycardia CKD (chronic kidney disease) Depression Hypertension did not tolerate nifedipine Smoking Tension headache Thalassemia Surgical History No pertinent past surgical history Family History Father Arrhythmia Sister Arrhythmia Other Thalassemia Denies family history of Diabetes Stroke Social History Smoking and tobacco status: former smoker Alcohol intake: former Year of sobriety/quit date alcohol: 1994 Caregiver/support person: Yes Lives independently: Yes Household members: spouse Housing: House Marital status: History of recent travel: No Current gender identity: Male Physical Exam Const: COMMON NORMALS: patient oriented x3 GENERAL APPEARANCE: ill appearing HENMT: COMMON NORMALS: normocephalic and atraumatic HEAD & SCALP: normocephalic and atraumatic Eye: COMMON NORMALS: Equal, round and reactive pupils present and EOMs intact bilaterally PUPIL: Yes Equal, round and reactive pupils present Neck/C-Spine: COMMON NORMALS: full ROM and supple Chest: COMMONS NORMALS: normal inspection of the chest and normal palpation of entire chest wall Resp: COMMON NORMALS: normal respiratory effort, No retractions, No use of accessory muscles and clear to auscultation bilaterally AUSCULTATION: clear to auscultation bilaterally Cardio: COMMON NORMALS: regular rate, regular rhythm and No murmurs present (Cardio) RATE: regular rate RHYTHM: regular rhythm GI: COMMON NORMALS: Normal to inspection, nondistended, normoactive bowel sounds present, Soft to palpation, non-tender and no masses PALPATION: Yes Soft to palpation Extremity: COMMON NORMALS: normal to inspection and full ROM Neuro: COMMON NORMALS: patient oriented x3, moves all extremities and no focal motor deficits Psych: COMMON NORMALS: mental status grossly normal, Normal thought process present and cooperative THOUGHT PROCESS: Normal thought process present Skin: COMMON NORMALS: no rashes or lesions noted and no wounds GENERAL SKIN EXAM: no rashes or lesions noted Course Vital Signs: Vital signs: Vital Signs Temperature 97.8 F 04/12/22 18:40 Pulse Rate 69 04/12/22 20:11 Respiratory Rate 18 04/12/22 20:11 Blood Pressure 145/76 04/12/22 20:11 Pulse Oximetry 100 04/12/22 20:11 Oxygen Delivery Me thod 04/12/22 18:40 MDM - Recheck/Abnormal Lab/Rx Medical Decision Making Patient presents with hyperkalemia he is well-appearing here asymptomatic potassium originally was only six-point 0 repeat potassium here is much improved here. Patient stable for discharge is to follow-up PCP and return if worsening. Lab Data : 04/12/22 19:10 04/12/22 21:12 Laboratory Results WBC 10.7 10^3/uL (4.0-10.0) H 04/12/22 19:10 RBC 5.43 10^6/uL (4.1-5.3) H 04/12/22 19:10 Hgb 10.2 g/dL (11.7-16.6) L 04/12/22 19:10 Hct 34.0 % (42.0-52.0) L 04/12/22 19:10 MCV 62.6 fl (80-94) L 04/12/22 19:10 MCH 18.8 pg (28.0-34.0) L 04/12/22 19:10 MCHC 30.0 g/dL (30.0-36.0) 04/12/22 19:10 RDW 20.1 % (12.1-15.1) H 04/12/22 19:10 Plt Count 354 10^3/cmm (130-400) 04/12/22 19:10 MPV 11.0 fL (7.4-10.4) H 04/12/22 19:10 Lymph % (Auto) Not Reportable 04/12/22 19:10 [place] % (Auto) Not Reportable 04/12/22 19:10 Lymph # (Auto) Not Reportable 04/12/22 19:10 [place] # (Auto) Not Reportable 04/12/22 19:10 Total Counted 100 (0-100) 04/12/22 19:10 Atypical Lymphs % 3.0 % (0-5) 04/12/22 19:10 Absolute Neutrophils 7.8 10^3/cmm (1.4-6.5) H 04/12/22 19:10 Segmented Neutrophils 72 % 04/12/22 19:10 Abs Segm Neuts (Man) 7.7 10/cmm (1.6-7.1) H 04/12/22 19:10 Band Neutrophils 1.0 % 04/12/22 19:10 Abs Band Neuts (Man) 0.1 10^3/cmm (0.0-1.2) 04/12/22 19:10 Absolute Lymphocytes 1.9 10^3/cmm (1.2-3.4) 04/12/22 19:10 Lymphocytes (Manual) 15 % 04/12/22 19:10 Monocytes (Manual) 5.0 % 04/12/22 19:10 Absolute Monocytes 0.5 10^3/cmm (0.1-0.6) 04/12/22 19:10 Eosinophils (Manual) 3 % 04/12/22 19:10 Absolute Eosinophils 0.3 10^3/cmm (0.0-0.7) 04/12/22 19:10 Basophils (Manual) 0.0 % 04/12/22 19:10 Absolute Basophils 0.0 10^3/cmm (0.0-0.2) 04/12/22 19:10 Platelet Estimate Normal (Normal) 04/12/22 19:10 Hypochromasia Trace 04/12/22 19:10 Poikilocytosis 1+ H 04/12/22 19:10 Microcytosis 2+ H 04/12/22 19:10 Target Cells Trace 04/12/22 19:10 Tear Drop Cells Trace 04/12/22 19:10 Ovalocytes Trace 04/12/22 19:10 [place] Cells Trace 04/12/22 19:10 Rouleaux Trace 04/12/22 19:10 Schistocytes Trace 04/12/22 19:10 Sodium 137 mmol/L (136-145) 04/12/22 21:12 Potassium 4.9 mmol/L (3.5-5.1) 04/12/22 21:12 Chloride 107 mmol/L (98-107) 04/12/22 21:12 Carbon Dioxide 16 mmol/L (22-29) L 04/12/22 21:12 Anion Gap 18.9 (5-19) 04/12/22 21:12 BUN 55 mg/dL (8-23) H 04/12/22 21:12 Creatinine 3.3 mg/dL (0.7-1.2) H 04/12/22 21:12 GFR Calculation Not Reportable 04/12/22 21:12 Glucose 72 mg/dL (65-115) 04/12/22 21:12 POC Glucose 118 mg/dL (70-110) H 04/12/22 20:29 Calculated Osmolality 298 mOsm/kg (285-295) H 04/12/22 21:12 Calcium 8.7 mg/dL (8.5-10.5) 04/12/22 21:12 Total Bilirubin 0.2 mg/dL (0.15-1.2) 04/12/22 19:10 AST 26 U/L (0-40) 04/12/22 19:10 ALT 29 U/L (0-41) 04/12/22 19:10 Alkaline Phosphatase 74 IU/L (40-130) 04/12/22 19:10 Total Protein 8.3 g/dL (6.6-8.7) 04/12/22 19:10 Albumin 4.7 g/dL (3.5-5.2) 04/12/22 19:10 Globulin 3.6 g/dL (1.3-4.6) 04/12/22 19:10 EKG Data EKG 1: I personally reviewed and interpreted this EKG as follows: EKG interpretation date: 04/12/22 EKG interpretation time: 18:47 Interpretation: nsr hr [address] or t wave abnormalities qrs 105 qtc 401 Discharge Plan Discharge Patient Disposition: Home Clinical Impression: Hyperkalemia Condition: Stable Prescriptions: No Action aspirin 325 mg tablet 325 mg PO BID hydralazine 25 mg tablet 25 mg PO TID PRN (Reason: severe high blood pressure) Qty: 30 2RF Rx Instructions: only if Blood Pressure >160/>100 for over 15 min pravastatin 10 mg tablet 10 mg PO BEDTIME 90 Days Qty: 90 3RF loratadine 10 mg tablet 10 mg PO DAILY 90 Days Qty: 90 3RF hydrochlorothiazide 25 mg tablet 25 mg PO DAILY 90 Days Qty: 90 1RF clonidine HCl 0.1 mg tablet 0.1 mg PO BEDTIME 90 Days Qty: 90 1RF amlodipine 10 mg tablet 10 mg PO DAILY Qty: 90 3RF polyethylene glycol 3350 [Miralax] 17 gram/dose powder 4 g PO DAILY PRN (Reason: constipation) Qty: 850 0RF amiodarone 200 mg tablet 200 mg PO DAILY Qty: 90 3RF folic acid 1 mg Tablet 1 mg PO DAILY Discharge Orders: Discharge ED (Routine); Ordered 04/12/22 Ordered By: Rach Magallanes Referrals: Amrita Restrepo MD [Primary Care Provider] - Discharge Diet: Advance as tolerated Discharge Activity: Resume usual activity Patient Instructions: Hyperkalemia (ED) Coding Level of Care Code ED International Sourcing Manager for Chg Fwd Exam Comprehensive
[2022-04-12 19:20] LABS: Hemoglobin 10.2 g/dL (11.7-16.6); Mean Corpuscular Hemoglobin 18.8 pg (28.0-34.0); Mean Corpuscular Volume 62.6 fl (80-94); Platelet Count 354 10^3/cmm (130-400); Red Blood Count 5.43 10^6/uL (4.1-5.3); Red Cell Distribution Width 20.1 % (12.1-15.1); White Blood Count 10.7 10^3/uL (4.0-10.0)
[2022-04-12 19:45] LABS: Alanine Aminotransferase 29 U/L (0-41); Albumin Level 4.7 g/dL (3.5-5.2); Alkaline Phosphatase 74 IU/L (40-130); Aspartate Amino Transferase 26 U/L (0-40); Blood Urea Nitrogen 57 mg/dL (8-23); Calcium 9.3 mg/dL (8.5-10.5); Carbon Dioxide 19 mmol/L (22-29); Chloride 101 mmol/L (98-107); Globulin 3.6 g/dL (1.3-4.6); Glucose 116 mg/dL (65-115); Osmolality Calculated 297 mOsm/kg (285-295); Sodium 135 mmol/L (136-145); Total Bilirubin 0.2 mg/dL (0.15-1.2); Total Protein 8.3 g/dL (6.6-8.7)
[2022-04-12] MEDS: sodium chloride 0.9% 500 ML 999 ML IV (20:07)
[2022-04-12 20:11] VITALS: BP 145/76; PULSE 69; RESP 18; O2SAT 100
[2022-04-12] MEDS: dextrose 50% syringe 50 mL IVP (20:29)
[2022-04-12] MEDS: insulin regular-human 100 units/1 mL 10 UNIT IVP (20:30)
[2022-04-12 20:36] LABS: Absolute Eosinophils 0.3 10^3/cmm (0.0-0.7); Absolute Neutrophil 7.8 10^3/cmm (1.4-6.5); Absolute Segmented Neutrophil 7.7 10/cmm (1.6-7.1); Band Neutrophils Absolute 0.1 10^3/cmm (0.0-1.2); Eosinophils 3 %; Lymphocytes 15 %; Lymphocytes Absolute 1.9 10^3/cmm (1.2-3.4); Monocytes Absolute 0.5 10^3/cmm (0.1-0.6); Platelet Estimate Normal (Normal); Segmented Neutrophils 72 %; Total Cells Counted 100 (0-100)
[2022-04-12 20:36] LABS: Glucose Point of Care 118 mg/dL (70-110)
[2022-04-12 20:37] LABS: Hypochromasia Trace
[2022-04-12 20:38] LABS: Microcytosis 2+; Poikilocytosis 1+; Target Cells Trace; Tear Drop Cells Trace
[2022-04-12 20:39] LABS: Burr Cells Trace; Ovalocytes Trace; Rouleau TRACE; Schistocytes Trace
[2022-04-12 21:41] LABS: Anion Gap 18.9 (5-19); Blood Urea Nitrogen 55 mg/dL (8-23); Calcium 8.7 mg/dL (8.5-10.5); Carbon Dioxide 16 mmol/L (22-29); Chloride 107 mmol/L (98-107); Glucose 72 mg/dL (65-115); Osmolality Calculated 298 mOsm/kg (285-295); Potassium 4.9 mmol/L (3.5-5.1); Sodium 137 mmol/L (136-145)
[2022-04-12 22:11] VITALS: BP 129/62; PULSE 73; RESP 17; O2SAT 98
== END 2022-04-12 22:12 | disposition home or self-care (01) ==
PROVIDERS: Emergency Provider Emergency Medicine; PCP Family Medicine
DX: E87.5 Hyperkalemia (principal); Z79.82 Long term (current) use of aspirin; I12.9 Hypertensive chronic kidney disease with stage 1 through stage 4 chronic kidney disease, or unspecified chronic kidney disease; N18.9 Chronic kidney disease, unspecified; Z87.891 Personal history of nicotine dependence; Z99.2 Dependence on renal dialysis
CPT/HCPCS: 36416; 80048; 80053; 82962; 85007; 85025; 93005; 96361; 96374; 96375; 99284; J1815; J7040

== ENCOUNTER 2022-04-15 14:48 | Outpatient (CLI) | payer SELFPAY ==
--- NOTE | 2022-04-15 15:07 | US_ITS ---
WS: [id number] ULTRASOUND RENAL TECHNIQUE: Ultrasound examination of both kidneys. CLINICAL INFORMATION: STAGE 3B CHRONIC KIDNEY DZ COMPARISON: None. FINDINGS: Bilateral echogenic kidneys with mild renal cortical atrophy RIGHT: Echogenicity: Increased Cortical thickness: 1.1 cm; Hydronephrosis: None. Perinephric fluid: None. Right kidney measures: 8.5 cm x 4.9 cm x 5.3 cm. LEFT: Echogenicity: Increased Cortical thickness: 1.0 cm; Hydronephrosis: None. Perinephric fluid: None. Left kidney measures: 8.7 cm x 3.9 cm x 4.6 cm. Normal visualized aorta. Normal bladder. Enlarged nodular prostate measuring 4.4 x 4.9 cm US/US renal BI* [id number] IMPRESSION: 1. Bilateral echogenic kidneys with mild renal cortical atrophy compatible wit h medical renal disease. 2. No hydronephrosis in either kidney. 3. Enlarged nodular prostate measuring 4.4 x 4.9 cm. Recommend correlation PSA .
== END 2022-04-15 14:49 | disposition home or self-care (01) ==
LOC: RAD 14:51
PROVIDERS: PCP Family Medicine; Visit Provider Internal Medicine
DX: N18.32 Chronic kidney disease, stage 3b (principal); N40.0 Benign prostatic hyperplasia without lower urinary tract symptoms
CPT/HCPCS: 76770

== ENCOUNTER → 2022-04-18 13:59 | Outpatient (BNVA) | payer SELFPAY | PROVIDERS: PCP Family Medicine; Visit Provider Internal Medicine | DX: N18.9 Chronic kidney disease, unspecified (principal) | CPT/HCPCS: 80048; 85025 ==

== ENCOUNTER → 2022-05-15 14:45 | Outpatient (BNVA) | payer SELFPAY | PROVIDERS: PCP Family Medicine; Visit Provider Internal Medicine | DX: N18.9 Chronic kidney disease, unspecified (principal) | CPT/HCPCS: 80069; 82310; 82570; 83970; 84156; 85025 ==

== ENCOUNTER → 2022-06-05 11:52 | Outpatient (BNVA) | payer SELFPAY | PROVIDERS: PCP Family Medicine; Visit Provider Internal Medicine | DX: N18.4 Chronic kidney disease, stage 4 (severe) (principal) | CPT/HCPCS: 80048 ==

== ENCOUNTER → 2022-10-10 14:59 | Outpatient (BNVA) | payer SELFPAY | PROVIDERS: PCP Family Medicine; Visit Provider Internal Medicine | DX: N18.9 Chronic kidney disease, unspecified (principal) | CPT/HCPCS: 80069; 82043; 82306; 82310; 83970; 85025 ==

== ENCOUNTER → 2023-01-29 10:54 | Outpatient (BNVA) | payer SELFPAY | PROVIDERS: PCP Family Medicine; Visit Provider Internal Medicine | DX: N18.9 Chronic kidney disease, unspecified (principal) | CPT/HCPCS: 80069; 82043; 82542; 85025 ==

== ENCOUNTER → 2023-03-26 15:39 | Outpatient (BNVA) | payer SELFPAY | PROVIDERS: PCP Family Medicine; Visit Provider Emergency Medicine | DX: N18.9 Chronic kidney disease, unspecified (principal); I10 Essential (primary) hypertension; R53.1 Weakness; R42 Dizziness and giddiness; Z12.5 Encounter for screening for malignant neoplasm of prostate; I49.3 Ventricular premature depolarization; R34 Anuria and oliguria | CPT/HCPCS: 80053; 81000; 83880; 85007; 85025; G0103 ==

== ENCOUNTER → 2023-03-31 15:17 | Outpatient (BNVA) | payer SELFPAY | PROVIDERS: PCP Family Medicine; Visit Provider Family Medicine | DX: R53.1 Weakness (principal); N18.9 Chronic kidney disease, unspecified; R50.9 Fever, unspecified; D72.819 Decreased white blood cell count, unspecified; R79.89 Other specified abnormal findings of blood chemistry; D70.3 Neutropenia due to infection; R74.8 Abnormal levels of other serum enzymes; I10 Essential (primary) hypertension | CPT/HCPCS: 80053; 80074; 85007; 85027; 85651; 86038; 86140; 86618; 86666; 86757; 87806 ==

== ENCOUNTER → 2023-04-22 15:09 | Outpatient (BNVA) | payer SELFPAY | PROVIDERS: PCP Family Medicine; Visit Provider Family Medicine | DX: B15.9 Hepatitis A without hepatic coma (principal) | CPT/HCPCS: 80053; 85007; 85027 ==

== ENCOUNTER → 2023-10-10 09:25 | Outpatient (BNVA) | payer SELFPAY | PROVIDERS: PCP Family Medicine; Visit Provider Nurse Practitioner | DX: R07.81 Pleurodynia (principal) | CPT/HCPCS: 71101 ==

== ENCOUNTER → 2024-02-17 10:23 | Outpatient (BNVA) | payer SELFPAY | PROVIDERS: PCP Family Medicine; Visit Provider Family Medicine | DX: D70.3 Neutropenia due to infection (principal); I10 Essential (primary) hypertension; N18.9 Chronic kidney disease, unspecified; R97.20 Elevated prostate specific antigen [PSA]; Z12.5 Encounter for screening for malignant neoplasm of prostate; B35.1 Tinea unguium; B36.0 Pityriasis versicolor | CPT/HCPCS: 80053; 80061; 84153; 85025 ==

== ENCOUNTER → 2024-07-08 16:33 | Outpatient (BNVA) | payer SELFPAY | PROVIDERS: PCP Family Medicine; Visit Provider Internal Medicine Cardiovascular Disease | DX: I49.8 Other specified cardiac arrhythmias (principal); I45.81 Long QT syndrome; R07.9 Chest pain, unspecified | CPT/HCPCS: 93005 ==

== ENCOUNTER 2024-09-30 10:54 | Inpatient (IN) | payer SELFPAY ==
[2024-09-30] VITALS (8 sets, daily range): BP systolic 112–162; BP diastolic 62–76; PULSE 75–83; RESP 16–18; TEMP 36.6–37.6; O2SAT 91–95; BMI 22.1; BMI 22.0
--- NOTE | 2024-09-30 11:43 | ED_ITS ---
HPI - Nausea/Vomiting/Diarrhea 2 General: Chief complaint: Nausea/Vomiting/Diarrhea Stated complaint: sick Time Seen by Provider: 09/30/24 11:26 History of Present Illness: History is obtained from the patient and his . Patient states that 6 months ago he had a low-grade fever. He states he saw his doctor who told him that he had hepatitis A. He states the fever went away after about 2 weeks. 2 weeks later again however he states the fever came back. He states it has just been a very low-grade fever up to 98. He states that his normal is 97.6. He states it would get to the upper 97's and sometimes even up to 98.0. He states that he felt fine for the most part however yesterday he thinks he might of had some bad lasagna to eat because last night he started having nausea vomiting and diarrhea and a fever up to 100.0. He has had an intermittent headache that will come and go but when his fever goes down his headache goes away. No chest pain. He feels anxious and feels slight shortness of breath with his anxiety but no cough. No abdominal pain. No black or bloody stools. His thinks the lasagna was not bad. Patient denies any head injury. No change in urination. He has chronic kidney disease and he was worried about dehydration. He does take Lasix as well and has a history of heart disease. He has not had any chest discomfort. Related Data Home Medications Medication Instructions Recorded Confirmed folic acid 1 mg tablet 1 mg PO DAILY 03/15/22 09/30/24 cholecalciferol (vitamin D3) 50 50 mcg PO DAILY 01/07/23 09/30/24 mcg (2,000 unit) capsule furosemide 20 mg tablet (Lasix) 20 mg PO DAILY 01/07/23 09/30/24 sodium bicarbonate 650 mg tablet 650 mg PO BID 01/07/23 09/30/24 Previous Rx's Medication Instructions Recorded efinaconazole 10 % topical 1 applic topical DAILY 30 days #8 02/17/24 solution with applicator mL terbinafine HCl 1 % topical cream 1 applic topical BID #30 grams 02/17/24 (Antifungal (terbinafine)) amiodarone 200 mg tablet 200 mg PO DAILY #90 tabs 05/05/24 amlodipine 10 mg tablet 5 mg (1/2 x 10 mg) PO DAILY #90 05/18/24 tabs fluconazole 150 mg tablet 150 mg PO .WEEKLY 12 weeks #12 tabs 05/18/24 ketoconazole 2 % shampoo 1 applic topical DAILY #120 mL 05/18/24 Allergies Allergy/AdvReac Type Severity Reaction Status Date / Time lisinopril AdvReac Severe hyperkalemi Verified 07/08/24 15:39 a PFSH ED 2 PFSH: Medical History Bradycardia Tension headache Allergic rhinitis CKD (chronic kidney disease) Thalassemia Depression Smoking Hypertension did not tolerate nifedipine Surgical History No pertinent past surgical history Family History Father Arrhythmia Sister Arrhythmia Other Thalassemia Denies family history of Diabetes Stroke Social History Smoking and tobacco/nicotine status: former use of tobacco/nicotine (5 cigarettes daily / Quit 05/23/24) Alcohol intake: former Year of sobriety/quit date alcohol: 1994 Substance/Drug Use: never Caregiver/support person: Yes Lives independently: Yes Household members: spouse Housing: House Marital status: Current gender identity: Male Physical Exam 2 Narrative: EXAM NARRATIVE: Patient tolerates deep palpation throughout the abdomen. No guarding or rebound. Negative Walter's. No focal tenderness. Const: COMMON NORMALS: no acute distress and patient oriented x3 GENERAL APPEARANCE: cooperative ORIENTATION/CONSCIOUSNESS: Yes awake HENMT: COMMON NORMALS: normocephalic, atraumatic, Normal external nose present and moist oral mucous membranes HEAD & SCALP: normocephalic and atraumatic FACE & SINUS: normal facial exam NOSE: Normal external nose present Eye: COMMON NORMALS: Equal, round and reactive pupils present, EOMs intact bilaterally and conjunctivae normal CONJUNCTIVA: Yes conjunctivae normal P UPIL: Yes Equal, round and reactive pupils present Neck/C-Spine: COMMON NORMALS: supple GENERAL: Yes normal visual inspection Resp: COMMON NORMALS: normal respiratory effort, No retractions, No use of accessory muscles and clear to auscultation bilaterally AUSCULTATION: clear to auscultation bilaterally Cardio: COMMON NORMALS: regular rate and regular rhythm RATE: regular rate RHYTHM: regular rhythm GI: COMMON NORMALS: Soft to palpation and non-tender PALPATION: Yes Soft to palpation Back/Pelvis: LUMBAR SPINE/LOWER BACK: Yes lumbar ROM normal Extremity: COMMON NORMALS: no calf tenderness and no pedal edema Neuro: COMMON NORMALS: patient oriented x3 SPEECH: speech normal Psych: COMMON NORMALS: mental status grossly normal, cooperative and speech normal SPEECH: Yes normal speech Skin: COMMON NORMALS: no rashes or lesions noted GENERAL SKIN EXAM: no rashes or lesions noted Course 2 Vital Signs: Vital signs: Vital Signs Temperature 99.3 F 09/30/24 15:36 Pulse Rate 83 09/30/24 15:36 Respiratory Rate 18 09/30/24 11:28 Blood Pressure 112/76 09/30/24 15:36 Pulse Oximetry 94 09/30/24 15:36 Oxygen Delivery Me thod Room Air 09/30/24 14:06 MDM - Nausea/Vomiting/Diarrhea Medical Decision Making Patient presents complaining of fever nausea vomiting and diarrhea acute onset last night. He reports this chronic low-grade fever he describes however he states his temperature has not gotten above 98. He states he has chronic kidney disease. 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 This is not new and he has been on it for some time. I do suspect patient has some dehydration by his history. He has not had much to drink since last night. He does take Lasix according to his . His adds history as the patient does not know his medications as well as the does. The is shaking her head and does not think it with his the lasagna that cause the nausea and vomiting and diarrhea. Patient does not have other known exposure. Patient has benign abdominal exam and serious intra-abdominal infection such as acute appendicitis or acute cholecystitis would be unlikely. I have ordered 1 L normal saline IV fluid bolus, 4 mg Zofran IV, CBC CMP blood cultures and EKG. Patient likely has a viral illness or gastroenteritis with his history. I advised patient however broad differential and limits of ED evaluation and potential serious causes of gastroenteritis. Patient denies urinary symptoms to suggest UTI. Not suggestive of central cause by history. Patient's neck is supple no meningeal signs. Patient had possible abscess and lesion in the lungs with central clearing. TB, abscess, chronic lesion, broad differential. With patient's vomiting fever I ordered CT chest abdomen pelvis to evaluate for source of infection and to further evaluate lung lesion. Patient has elevated creatinine which is worse than his baseline however appears fairly similar and is likely chronic with some mild worsening as his BUN is also elevated. Patient urinalysis not suggestive of infection. Patient's white blood cell count was 11.56. Liver enzymes are not elevated. I did order blood cultures as well. Patient denies foreign travel. He denies working with a [place] [facility] or homeless detention. He denies having diabetes or HIV or rheumatoid arthritis or immune compromise or take an immune suppressant.Patient CT ab pelvis did not show evidence of acute process consistent with clinical suspicion. Patient CT chest however showed possible cavitary lesion and semi solid nodules. I discussed with radiology who feels this is most consistent with fibrosis however a chronic indolent process is possible. The radiologist indicates that TB can look like many different things and state they could not exclude TB based on the CT findings. With possible pneumonia in the differential I ordered Rocephin 1 g IV. I consulted with Dr. Brooks the hospitalist who will evaluate the patient. Patient accepted for admission for further evaluation of pulmonary lession and treatement of nausea vomiting and diarrhea and dehydration. PPE maintained with all interactions with patient. Lab Data 09/30/24 12:07 09/30/24 12:07 Radiology Impressions Chest X-Ray 09/30/24 11:58 IMPRESSION: Chronic lung changes compatible with central lobar emphysema and small airway disease. Abnormality in the right upper lung of unknown chronicity. This may be an inflammatory process. Recommend follow-up chest x-ray in 7 to 10 days with additional imaging based on the findings at that time. Chest/Abdomen/Pelvis CT 09/30/24 13:23 IMPRESSION: 1. Scattered semi-solid nodules. These may represent fibrosis, active inflammation, or less likely small masses. Follow-up chest CT in 3 months recommended. 2. Focal infiltrate or fibrosis, partially cavitary or containing an emphysematous bleb in the right upper lobe superior IMPRESSION: No acute subdiaphragmatic pathology. Laboratory Results WBC 11.56 10^3/uL (3.29-11.43) H 09/30/24 12:07 RBC 5.96 10^6/uL (3.85-5.65) H 09/30/24 12:07 Hgb 11.20 g/dL (11.27-16.99) L 09/30/24 12:07 Hct 36.6 % (37-53) L 09/30/24 12:07 MCV 61.4 fl (82-101) L 09/30/24 12:07 MCH 18.8 pg (27-33) L 09/30/24 12:07 MCHC 30.6 g/dL (30-55) 09/30/24 12:07 RDW 18.8 % (12.1-15.1) H 09/30/24 12:07 Plt Count 291 10^3/cmm (157-399) 09/30/24 12:07 MPV Not Reportable 09/30/24 12:07 Neut % (Auto) 91.3 % 09/30/24 12:07 Lymph % (Auto) 2.8 % 09/30/24 12:07 [place] % (Auto) 4.6 % 09/30/24 12:07 Eos % (Auto) 0.3 % 09/30/24 12:07 Baso % (Auto) 0.4 % 09/30/24 12:07 Neut # (Auto) 10.56 10^3/uL (1.8-7.7) H 09/30/24 12:07 Lymph # (Auto) 0.3 10^3/uL (0.8-4.8) L 09/30/24 12:07 [place] # (Auto) 0.5 10^3/uL (0.2-0.9) 09/30/24 12:07 Eos # (Auto) 0.0 10^3/uL (0.0-0.8) 09/30/24 12:07 Baso # (Auto) 0.1 10^3/uL (0.0-0.1) 09/30/24 12:07 Nucleated RBC % (auto) 0.3 % 09/30/24 12:07 Nucleated RBCs # 0.0 /100WBC 09/30/24 12:07 Sodium 133 mmol/L (136-145) L 09/30/24 12:07 Potassium 4.3 mmol/L (3.5-5.1) 09/30/24 12:07 Chloride 96 mmol/L (98-107) L 09/30/24 12:07 Carbon Dioxide 21 mmol/L (22-29) L 09/30/24 12:07 Anion Gap 20.3 (5-19) H 09/30/24 12:07 BUN 46 mg/dL (8-23) H 09/30/24 12:07 Creatinine 2.6 mg/dL (0.7-1.2) H 09/30/24 12:07 GFR Calculation Not Reportable 09/30/24 12:07 Glucose 128 mg/dL (65-115) H 09/30/24 12:07 Calculated Osmolality 290 mOsm/kg (285-295) 09/30/24 12:07 Lactic Acid 1.0 mmol/L (0.5-2.2) 09/30/24 16:13 Calcium 8.5 mg/dL (8.5-10.5) 09/30/24 12:07 Iron 22 ug/dL (59-158) L 09/30/24 12:07 Ferritin 201 ng/mL (30-400) 09/30/24 12:07 Total Bilirubin 0.4 mg/dL (0.15-1.2) 09/30/24 12:07 AST 22 U/L (0-40) 09/30/24 12:07 ALT 16 U/L (0-41) 09/30/24 12:07 Alkaline Phosphatase 55 U/L (40-130) 09/30/24 12:07 Lactate Dehydrogenase 196 U/L (135-225) 09/30/24 12:07 C-Reactive Protein 40.1 mg/L (0.0-4.9) H 09/30/24 12:07 Total Protein 7.4 g/dL (6.6-8.7) 09/30/24 12:07 Albumin 4.0 g/dL (3.5-5.2) 09/30/24 12:07 Globulin 3.4 g/dL (1.3-4.6) 09/30/24 12:07 Procalcitonin 2.48 ng/mL (0-0.5) H 09/30/24 12:07 Urine Color Yellow (Yellow) 09/30/24 12:40 Urine Appearance Clear (CLEAR) 09/30/24 12:40 Urine pH 5.0 (5-7) 09/30/24 12:40 Ur Specific [place] 1.020 (1.005-1.030) 09/30/24 12:40 Urine Protein 2+ (Negative) A 09/30/24 12:40 Urine Glucose (UA) Negative (Normal) 09/30/24 12:40 Urine Ketones Trace (Negative) 09/30/24 12:40 Urine Blood Negative (Negative) 09/30/24 12:40 Urine Nitrate Negative (Negative) 09/30/24 12:40 Urine Bilirubin Negative (Negative) 09/30/24 12:40 Urine Urobilinogen 1.0 mg/dL (Negative) 09/30/24 12:40 Ur Leukocyte Esterase Negative (Negative) 09/30/24 12:40 Urine RBC 0-2 /hpf (0-2) 09/30/24 12:40 Urine WBC 0-5 /hpf (0-5) 09/30/24 12:40 Ur Squamous Epith Cells 0-5 /hpf (0-5) 09/30/24 12:40 Amorphous Sediment Not Reportable 09/30/24 12:40 Urine Bacteria None seen /hpf (NONE) 09/30/24 12:40 Hyaline Casts 12.81 /lpf 09/30/24 12:40 Coronavirus (PCR) Negative (Negative) 09/30/24 12:00 Hepatitis A IgM Ab Non-reactive (Nonreactive) 09/30/24 12:07 Hep Bs Antigen Non-reactive (Nonreactive) 09/30/24 12:07 Hep B Core IgM Ab Non-reactive (Nonreactive) 09/30/24 12:07 Hepatitis C Antibody Non-reactive (Nonreactive) 09/30/24 12:07 HIV 1&2 Ab & HIV 1 Ag Non-reactive (Non-Reactiv) 09/30/24 12:07 HIV 1&2 Antibody Non-reactive (Non-Reactiv) 09/30/24 12:07 Influenza A (PCR) Negative (Negative) 09/30/24 12:00 Influenza Type B (PCR) Negative (Negative) 09/30/24 12:00 RSV (PCR) Negative (Negative) 09/30/24 12:00 All radiology interpretation(s) finalized by discharge Discharge Plan Discharge Patient Disposition: Admitted As Inpatient Admit Provider: Stanford Reyes Clinical Impression: Diarrhea, Acute vomiting, Cavitary lesion of lung Condition: Stable Coding Level of Care Code ED Site Supervising Technical Operator for Karma Ferrell
--- NOTE | 2024-09-30 11:58 | ECG_ITS ---
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
--- NOTE | 2024-09-30 11:58 | XR_ITS ---
WS: [id number] XR chest 1V 95186 REASON FOR EXAM: fever FINDINGS: The heart and the mediastinum are within normal limits. There are coarse reticular interstitial lung opacities and multiple small mildly dilated bronchi with peribronchial cuffing. These findings were present on 10/10/2023 and are unchanged. There are also co arse central interstitial reticular lung opacities and irregular aeration compatible with central lob ar emphysema. Since the previous examination an ill-defined lung opacity has developed in the periphery of the righ t upper lung field abutting the pleura. There are irregular thickened reticular interstitial densitie s extending from the margins of the opacity. There is an appearance of a central lucency within the a bnormality which may represent peribullous inflammation, less likely abscess. Old healed right rib fracture. Mild degenerative spondylosis of the thoracic spine. XR/XR chest 1V 66075 IMPRESSION: Chronic lung changes compatible with central lobar emphysema and small airway d isease. Abnormality in the right upper lung of unknown chronicity. This may be an inflammatory process. Recommend follow-up chest x-ray in 7 to 10 days with additional imaging based o n the findings at that time.
[2024-09-30] MEDS: ondansetron 2 mg/ML SDV 2 mL 4 MG IVP (12:10)
[2024-09-30] MEDS: sodium chloride 0.9% 1,000 ML 999 ML IV (12:11)
[2024-09-30 12:16] LABS: Basophils # 0.1 10^3/uL (0.0-0.1); Basophils % 0.4 %; Eosinophils % 0.3 %; Hematocrit 36.6 % (37-53); Lymphocytes # 0.3 10^3/uL (0.8-4.8); Lymphocytes % 2.8 %; Mean Corpuscular HGB Conc 30.6 g/dL (30-55); Mean Corpuscular Hemoglobin 18.8 pg (27-33); Mean Corpuscular Volume 61.4 fl (82-101); Monocytes # 0.5 10^3/uL (0.2-0.9); Monocytes % 4.6 %; Neutrophils # 10.56 10^3/uL (1.8-7.7); Neutrophils % 91.3 %; Nucleated Red Blood Cells % 0.3 %; Platelet Count 291 10^3/cmm (157-399); Red Blood Count 5.96 10^6/uL (3.85-5.65); Red Cell Distribution Width 18.8 % (12.1-15.1); White Blood Count 11.56 10^3/uL (3.29-11.43)
[2024-09-30 12:33] LABS: Alanine Aminotransferase 16 U/L (0-41); Alkaline Phosphatase 55 U/L (40-130); Anion Gap 20.3 (5-19); Aspartate Amino Transferase 22 U/L (0-40); Blood Urea Nitrogen 46 mg/dL (8-23); Calcium 8.5 mg/dL (8.5-10.5); Carbon Dioxide 21 mmol/L (22-29); Chloride 96 mmol/L (98-107); Creatinine Clr Calc Pharmacy 21.9471; Globulin 3.4 g/dL (1.3-4.6); Glucose 128 mg/dL (65-115); Osmolality Calculated 290 mOsm/kg (285-295); Potassium 4.3 mmol/L (3.5-5.1); Sodium 133 mmol/L (136-145); Total Bilirubin 0.4 mg/dL (0.15-1.2); Total Protein 7.4 g/dL (6.6-8.7)
[2024-09-30 12:41] LABS: Slide Review Slide Review Perform
[2024-09-30 13:06] LABS: Bilirubin Urine Negative (Negative); Blood Urine Negative (Negative); Glucose Urine UA Negative (Normal); Ketones Urine Trace (Negative); Leukocyte Esterase Urine Negative (Negative); Nitrate Urine Negative (Negative); Protein Urine 2+ (Negative); Urine Appearance Clear (CLEAR); Urine Color Yellow (Yellow)
[2024-09-30 13:08] LABS: Bacteria Urine None Seen /hpf; Hyaline Casts Urine 12.81 /lpf; RBC Urine 0-2 /hpf (0-2); Squamous Epithelial Cell Urine 0-5 /hpf (0-5); WBC Urine 0-5 /hpf (0-5)
[2024-09-30 13:16] LABS: Covid PCR NEGATIVE (Negative); Influenza A NEGATIVE (Negative); Influenza B NEGATIVE (Negative); Respiratory Syncytial Virus Ce NEGATIVE (Negative)
[2024-09-30 13:23] LABS: Add Urine Culture? No
--- NOTE | 2024-09-30 13:23 | CTR_ITS ---
PROCEDURE INFORMATION: Exam: CT Chest Without Contrast; Diagnostic Exam date and time: 09/30/2024 1:41 PM Age: 79 years old Clinical indication: Fever and vomiting; Additional info: Fever, vomiting TECHNIQUE: Imaging protocol: Diagnostic computed tomography of the chest without contrast. Radiation optimization: All CT scans at this facility use at least one of these dose optimization techniques: automated exposure control; mA and/or kV adjustment per patient size (includes targeted exams where dose is matched to clinical indication); or iterative reconstruction. COMPARISON: CR XR chest 1V [id number] 09/30/2024 12:05 PM RADIATION DOSE METRICS: Total DLP (mGy-cm): 564.68 FINDINGS: Lungs: Small scattered semi-solid opacities bilaterally, is uncertain whether these represent areas of fibrosis or small focal infiltrates. Even small masses with desmoplastic reaction is a possibility. Follow-up CT in 3 months recommended. Biapical pleural and parenchymal fibrosis. There is a small possibly slightly cavitary focus of infiltrate or fibrosis right upper. Pleural spaces: Unremarkable. No pneumothorax. No pleural effusion. Heart: Unremarkable. No cardiomegaly. No pericardial effusion. Coronary arteries: Coronary artery calcifications. Lymph nodes: Unremarkable. No enlarged lymph nodes. Vasculature: Unremarkable. No aortic aneurysm. Bones/joints: Unremarkable. No acute fracture. Soft tissues: Unremarkable. PROCEDURE INFORMATION: Exam: CT Abdomen And Pelvis Without Contrast Exam date and time: 09/30/2024 1:41 PM Age: 79 years old Clinical indication: Fever and vomiting; Additional info: Fever, vomiting TECHNIQUE: Imaging protocol: Computed tomography of the abdomen and pelvis without contrast. Radiation optimization: All CT scans at this facility use at least one of these dose optimization techniques: automated exposure control; mA and/or kV adjustment per patient size (includes targeted exams where dose is matched to clinical indication); or iterative reconstruction. COMPARISON: US renal BI* [id number] 04/15/2022 3:16 PM RADIATION DOSE METRICS: Total DLP (mGy-cm): 564.68 FINDINGS: Liver: Normal. No mass. Gallbladder and biliary ducts: Tiny gallstones. Pancreas: Normal. No ductal dilation. Spleen: Normal. No splenomegaly. Adrenal glands: Normal. No mass. Kidneys and ureters: Normal. No hydronephrosis. Stomach and bowel: Diverticulosis without evidence of diverticulitis. Diverticulosis without evidence of diverticulitis. Appendix: No evidence of appendicitis. Intraperitoneal space: Unremarkable. No free air. No significant fluid collection. Vasculature: Abdominal aortic calcifications. Lymph nodes: Unremarkable. No enlarged lymph nodes. Urinary bladder: Unremarkable as visualized. Reproductive: Enlarged prostate. Bones/joints: Unremarkable. No acute fracture. Soft tissues: Unremarkable. CT/[place] [id number] IMPRESSION: 1. Scattered semi-solid nodules. These may represent fibrosis, active inflammation, or less likely small masses. Follow-up chest CT in 3 months recommended. 2. Focal infiltrate or fibrosis, partially cavitary or containing an emphysematous bleb in the right upper lobe superior IMPRESSION: No acute subdiaphragmatic pathology.
[2024-09-30] MEDS: cefTRIAXone 1,000 mg SDV 1000 MG IVP (15:35)
--- NOTE | 2024-09-30 16:05 | P.HP_ITS ---
Providers/Chief Complaint 2 Primary Care Provider: Amrita Restrepo MD Chief Complaint: sick History of Present Illness Jay Sharp is a 79 year old male The patient, who has a history of chronic kidney disease and thalassemia, hepatitis A, symptomatic PVCs, presented to the hospital after experiencing disorientation, vomiting, diarrhea, and weakness since last night. The patient reports feeling terrible and has had a fever at home. Approximately six months ago, the patient was diagnosed with Hepatitis A after experiencing a low-grade fever. The patient was advised that there was no medication for it and that it would resolve on its own, which it did, but symptoms returned two weeks later. The patient denies any recent exposure to tuberculosis, raw milk consumption, or contact with individuals with Hepatitis. The patient suspects food poisoning from lasagna prepared at home. The patient denies abdominal pain but reports diarrhea without blood. The patient has a history of smoking but quit on May 22. The patient has not fallen recently but felt weak last night. The patient was advised to stop taking Lisinopril due to kidney concerns. Denies exposure to tuberculosis denies a prior history of tuberculosis, denies any hemoptysis, no cough, no exposure to raw milk. No recent travel,, no recent history of food poisoning no IV drug use does report diarrhea but no blood or black stools Review of Systems 2 Const: Reports: fever(s), chills, fatigue and malaise Card: Denies: chest pain Resp: Denies: dyspnea GI: Reports: nausea and vomiting Medications/Allergies Home Medications Medication Instructions Recorded Confirmed Last Taken Type folic acid 1 mg tablet 1 mg PO DAILY 03/15/22 09/30/24 09/29/24 History cholecalciferol (vitamin D3) 50 50 mcg PO DAILY 01/07/23 09/30/24 09/29/24 History mcg (2,000 unit) capsule furosemide 20 mg tablet (Lasix) 20 mg PO DAILY 01/07/23 09/30/24 Unknown History sodium bicarbonate 650 mg tablet 650 mg PO BID 01/07/23 09/30/24 09/29/24 History efinaconazole 10 % topical 1 applic topical DAILY 30 days #8 02/17/24 09/30/24 Unknown Rx solution with applicator mL terbinafine HCl 1 % topical cream 1 applic topical BID #30 grams 02/17/24 09/30/24 Unknown Rx (Antifungal (terbinafine)) amiodarone 200 mg tablet 200 mg PO DAILY #90 tabs 05/05/24 09/30/24 09/29/24 Rx amlodipine 10 mg tablet 5 mg (1/2 x 10 mg) PO DAILY #90 05/18/24 09/30/24 09/29/24 Rx tabs fluconazole 150 mg tablet 150 mg PO .WEEKLY 12 weeks #12 tabs 05/18/24 09/30/24 Unknown Rx ketoconazole 2 % shampoo 1 applic topical DAILY #120 mL 05/18/24 09/30/24 Unknown Rx Allergies Allergy/AdvReac Type Severity Reaction Status Date / Time lisinopril AdvReac Severe hyperkalemi Verified 07/08/24 15:39 a PFSH Acute 2 PFSH: Medical History Bradycardia Tension headache Allergic rhinitis CKD (chronic kidney disease) Thalassemia Depression Smoking Hypertension did not tolerate nifedipine Surgical History No pertinent past surgical history Family History Father Arrhythmia Sister Arrhythmia Other Thalassemia Denies family history of Diabetes Stroke Social History Smoking and tobacco/nicotine status: former use of tobacco/nicotine (5 cigarettes daily / Quit 05/23/24) Alcohol intake: former Year of sobriety/quit date alcohol: 1994 Substance/Drug Use: never Caregiver/support person: Yes Lives independently: Yes Household members: spouse Housing: House Marital status: Current gender identity: Male Vitals/I&O/Wt Last Vital Signs Temp 99.3 F 09/30/24 15:36 Pulse 83 09/30/24 15:36 Resp 18 09/30/24 11:28 BP 112/76 09/30/24 15:36 Pulse Ox 94 09/30/24 15:36 O2 Del Method Room Air 09/30/24 14:06 09/30/24 09/30/24 09/30/24 06:59 14:59 22:59 Intake Total 1000 / 1000 Balance 1000 / 1000 Weight last 48 hrs Weight 68.039 kg Physical Exam 2 Const: COMMON NORMALS: no acute distress and patient oriented x3 Eye: COMMON NORMALS: Equal, round and reactive pupils present and EOMs intact bilaterally Resp: COMMON NORMALS: normal respiratory effort, No retractions, No use of accessory muscles and clear to auscultation bilaterally AUSCULTATION: clear to auscultation bilaterally Cardio: COMMON NORMALS: no JVD, regular rate, regular rhythm, S1 normal heart sound present and S2 normal heart sound present RATE: regular rate RHYTHM: regular rhythm HEART SOUNDS: S1 normal heart sound present and S2 normal heart sound present GI: COMMON NORMALS: Normal to inspection, nondistended, normoactive bowel sounds present, Soft to palpation and non-tender Extremity: COMMON NORMALS: no calf tenderness and no pedal edema Neuro: COMMON NORMALS: patient oriented x3, CN's II-XII intact bilaterally and moves all extremities Psych: COMMON NORMALS: mental status grossly normal Data 09/30/24 12:07 09/30/24 12:07 Micro: Microbiology 09/30/24 12:07 Blood Culture - Preliminary Blood SPECIMEN COLLECTED 09/30/24 12:07 Blood Culture - Preliminary Blood SPECIMEN COLLECTED A&P Assessment and plan (1) Fever: (2) Diarrhea: (3) KIA (acute kidney injury): Plan Nausea, vomiting, fevers, chills, appetite, diarrhea -Likely viral gastroenteritis Plan -Stool studies, CRP, Pro-Sandro, follow blood cultures, HIV, acute hep panel, viral respiratory panel -IV fluids -Abdominal exams -Monitor closely Acute kidney injury on CKD, IV fluids History of thalassemia CT of the chest 2. Focal infiltrate or fibrosis, partially cavitary or containing an emphysematous bleb in the right upper lobe superior -Denying any exposure to tuberculosis, no consumption of raw milk, no hemoptysis, no travel, no risk factors - low risk of TB -Does have a history of smoking -QuantiFERON gold -3 AFB test -Differential is broad, malignancy is certainly a possibility we will have him follow-up with pulmonary as outpatient Full code Lovenox for DVT prophylaxis Attestations 2 Medical Necessity Statement*: Patient requires hospitalization, outpatient observation, for nausea, vomiting, poor appetite, diarrhea, fevers, chills Diagnoses Fever R50.9 Diarrhea R19.7 KIA (acute kidney injury) N17.9
[2024-09-30 16:41] LABS: HIV 1 & 2 Antibody Non-Reactive (Non-Reactiv); HIV 1 & 2 Antigen Non-Reactive (Non-Reactiv); Hepatitis A Antibody IgM Non-Reactive (Nonreactive); Hepatitis B Core IgM Non-Reactive (Nonreactive); Hepatitis B Surface Antigen Non-Reactive (Nonreactive); Hepatitis C Virus Antibody Non-Reactive (Nonreactive)
[2024-09-30 16:46] LABS: C Reactive Protein 40.1 mg/L (0.0-4.9); Ferritin 201 ng/mL (30-400); Iron 22 ug/dL (59-158); Lactate Dehydrogenase 196 U/L (135-225)
[2024-09-30 16:53] LABS: Procalcitonin 2.48 ng/mL (0-0.5)
[2024-09-30 20:01] LABS: Estmated Average Glucose 97
[2024-09-30 20:03] LABS: Chol HDL Ratio 4.09 mg/dL (1.0-5.00); Cholesterol 135 mg/dL (0-200); HDL Cholesterol 33 mg/dL (60-100); LDL Cholesterol Calculated 78 mg/dL (50-129); LDL HDL Ratio 2.36 RATIO (0.00-3.22); Thyroid Stimulating Hormone 0.72 uIU/mL (0.27-4.20); Triglycerides 118 mg/dL (0-150)
[2024-09-30] MEDS: sodium bicarbonate 650 mg Tablet PO (20:17)
[2024-09-30] MEDS: enoxaparin 30 mg/0.3 mL Syringe SUBCUT (20:17)
[2024-09-30] MEDS: pantoprazole 40 mg SDV IVP (20:18)
[2024-09-30] MEDS: trazodone 50 mg Tablet 25 MG PO (23:37)
[2024-10-01] VITALS (8 sets, daily range): BP systolic 118–144; BP diastolic 52–81; PULSE 70–76; RESP 16–18; TEMP 36.4–37.3; O2SAT 93–96
[2024-10-01] MEDS: acetaminophen 325 mg Tablet 650 MG PO ×2 (05:09→21:46)
[2024-10-01 05:31] LABS: Basophils % 0.5 %; Eosinophils # 0.1 10^3/uL (0.0-0.8); Eosinophils % 0.7 %; Hematocrit 30.5 % (37-53); Lymphocytes # 1.2 10^3/uL (0.8-4.8); Lymphocytes % 16.7 %; Mean Corpuscular HGB Conc 31.1 g/dL (30-55); Mean Corpuscular Hemoglobin 19.3 pg (27-33); Mean Corpuscular Volume 61.9 fl (82-101); Monocytes # 0.8 10^3/uL (0.2-0.9); Monocytes % 11.2 %; Neutrophils # 5.17 10^3/uL (1.8-7.7); Neutrophils % 70.4 %; Nucleated Red Blood Cells % 0.4 %; Platelet Count 224 10^3/cmm (157-399); Red Blood Count 4.93 10^6/uL (3.85-5.65); Red Cell Distribution Width 17.9 % (12.1-15.1); White Blood Count 7.35 10^3/uL (3.29-11.43)
[2024-10-01 05:55] LABS: Alanine Aminotransferase 29 U/L (0-41); Albumin Level 3.3 g/dL (3.5-5.2); Alkaline Phosphatase 43 U/L (40-130); Anion Gap 16.1 (5-19); Aspartate Amino Transferase 36 U/L (0-40); Blood Urea Nitrogen 45 mg/dL (8-23); Calcium 7.6 mg/dL (8.5-10.5); Carbon Dioxide 22 mmol/L (22-29); Chloride 102 mmol/L (98-107); Creatinine Clr Calc Pharmacy 23.7265; Globulin 2.6 g/dL (1.3-4.6); Glucose 97 mg/dL (65-115); Osmolality Calculated 293 mOsm/kg (285-295); Phosphorus 2.9 mg/dL (2.5-4.5); Potassium 4.1 mmol/L (3.5-5.1); Sodium 136 mmol/L (136-145); Total Bilirubin 0.3 mg/dL (0.15-1.2); Total Protein 5.9 g/dL (6.6-8.7)
[2024-10-01] MEDS: amiodarone 200 mg Tablet PO (09:59)
[2024-10-01] MEDS: folic acid 1 mg Tablet PO (09:59)
[2024-10-01] MEDS: amlodipine 10 mg Tablet 5 MG PO (09:59)
[2024-10-01] MEDS: cefTRIAXone 1,000 mg SDV 1000 MG IVP (10:00)
[2024-10-01] MEDS: sodium bicarbonate 650 mg Tablet PO ×2 (10:00→17:54)
[2024-10-01] MEDS: AZITHROMYCIN ADD-Vantage 500 MG in 0.9% NaCl ADD-Vantage 250 ML 250 MG IV (10:00)
--- NOTE | 2024-10-01 13:43 | PC.OT ---
OT eval attemped; no OT services indicated due to high level of independence at this time.
[2024-10-01 14:08] LABS: C.Diff PCR (Lab) POSITIVE (Negative)
--- NOTE | 2024-10-01 14:13 | P.PN_ITS ---
Subjective 2 Subjective: Patient was seen this morning, he is alert to person, to place, not to time he follows all commands, still having complaints of diarrhea, no abdominal pain no nausea, no vomiting, no fevers, no chills, we had a discussion with him about his CAT scan findings, has a history of smoking no hemoptysis, no weight loss does have fatigue and malaise, no TB risk factors, no history of travel, no history of fungal infections Vitals/I&O/Wt Last Vital Signs Temp 98.0 F 10/01/24 07:55 Pulse 72 10/01/24 11:57 Resp 18 10/01/24 11:57 BP 137/63 10/01/24 11:57 Pulse Ox 94 10/01/24 11:57 O2 Del Method Room Air 10/01/24 11:57 09/30/24 10/01/24 10/01/24 22:59 06:59 14:59 Intake Total 1000 / 1000 730 / 730 Output Total 100 / 100 Balance 1000 / 1000 630 / 630 Weight last 48 hrs Weight 66.848 kg Weight 67.676 kg Weight 68.039 kg Physical Exam 2 Const: COMMON NORMALS: no acute distress ORIENTATION/CONSCIOUSNESS: Yes awake, Yes oriented to person and Yes oriented to place Neck/C-Spine: COMMON NORMALS: no JVD Resp: COMMON NORMALS: normal respiratory effort, No retractions, No use of accessory muscles and clear to auscultation bilaterally AUSCULTATION: clear to auscultation bilaterally Cardio: COMMON NORMALS: no JVD, regular rate, regular rhythm, S1 normal heart sound present and S2 normal heart sound present RATE: regular rate RHYTHM: regular rhythm HEART SOUNDS: S1 normal heart sound present and S2 normal heart sound present GI: COMMON NORMALS: Normal to inspection, nondistended, normoactive bowel sounds present and non-tender Extremity: COMMON NORMALS: no clubbing, cyanosis or edema and no pedal edema Neuro: SENSORIUM/ORIENTATION: Yes oriented to person and Yes oriented to place Psych: COMMON NORMALS: mental status grossly normal Data 10/01/24 05:07 10/01/24 05:07 Micro: Microbiology 10/01/24 12:30 Stool Lactoferrin - Final Stool Occult Blood (FIT) - Final 09/30/24 12:07 Blood Culture - Preliminary Blood NEGATIVE TO DATE 09/30/24 12:07 Blood Culture - Preliminary Blood NEGATIVE TO DATE A&P Assessment and plan (1) Fever: (2) Diarrhea: (3) KIA (acute kidney injury): (4) C. difficile colitis: (5) Pneumonia: Plan Nausea, vomiting, fevers, chills, appetite, diarrhea -Likely likely C. difficile colitis Plan -Transition to regular diet -Abdominal exams -Monitor closely Acute kidney injury on CKD, IV fluids History of thalassemia CT of the chest 2. Focal infiltrate or fibrosis, partially cavitary or containing an emphysematous bleb in the right upper lobe superior -Denying any exposure to tuberculosis, no consumption of raw milk, no hemoptysis, no travel, no risk factors - low risk of TB -Does have a history of smoking -QuantiFERON gold -3 AFB test -Differential is broad, malignancy is certainly a possibility we will have him follow-up with pulmonary as outpatient For concerns for pneumonia -For now continue Rocephin, Zithromycin for concern for pneumonia C. difficile colitis, start p.o. vancomycin Full code Lovenox for DVT prophylaxis Attestations 2 Medical Necessity Statement*: Patient requires hospitalization for C. difficile colitis, pneumonia Diagnoses Fever R50.9 Diarrhea R19.7 KIA (acute kidney injury) N17.9 C. difficile colitis A04.72 Pneumonia J18.9
[2024-10-01] MEDS: vancomycin 125 mg Capsule PO ×2 (16:36→21:45)
[2024-10-01] MEDS: enoxaparin 30 mg/0.3 mL Syringe SUBCUT (17:54)
[2024-10-01] MEDS: pantoprazole 40 mg SDV IVP (17:54)
[2024-10-01] MEDS: trazodone 50 mg Tablet 25 MG PO (23:38)
[2024-10-02] VITALS (8 sets, daily range): BP systolic 132–142; BP diastolic 55–72; PULSE 69–76; RESP 14–18; TEMP 36.4–37; O2SAT 90–95
[2024-10-02 03:43] LABS: Basophils % 0.3 %; Eosinophils # 0.2 10^3/uL (0.0-0.8); Eosinophils % 1.8 %; Hematocrit 29.6 % (37-53); Lymphocytes # 2.1 10^3/uL (0.8-4.8); Lymphocytes % 16.8 %; Mean Corpuscular HGB Conc 30.1 g/dL (30-55); Mean Corpuscular Hemoglobin 19.3 pg (27-33); Mean Corpuscular Volume 64.2 fl (82-101); Monocytes # 1.4 10^3/uL (0.2-0.9); Monocytes % 11.1 %; Neutrophils # 8.48 10^3/uL (1.8-7.7); Neutrophils % 69.4 %; Nucleated Red Blood Cells % 0.2 %; Platelet Count 242 10^3/cmm (157-399); Red Blood Count 4.61 10^6/uL (3.85-5.65); Red Cell Distribution Width 18.2 % (12.1-15.1); White Blood Count 12.21 10^3/uL (3.29-11.43)
[2024-10-02 04:02] LABS: Alanine Aminotransferase 27 U/L (0-41); Albumin Level 3.2 g/dL (3.5-5.2); Alkaline Phosphatase 43 U/L (40-130); Anion Gap 14.2 (5-19); Aspartate Amino Transferase 27 U/L (0-40); Blood Urea Nitrogen 32 mg/dL (8-23); C Reactive Protein 56.5 mg/L (0.0-4.9); Calcium 7.8 mg/dL (8.5-10.5); Carbon Dioxide 22 mmol/L (22-29); Chloride 105 mmol/L (98-107); Creatinine Clr Calc Pharmacy 28.3361; Globulin 2.7 g/dL (1.3-4.6); Glucose 102 mg/dL (65-115); Osmolality Calculated 291 mOsm/kg (285-295); Potassium 4.2 mmol/L (3.5-5.1); Procalcitonin 1.69 ng/mL (0-0.5); Sodium 137 mmol/L (136-145); Total Bilirubin 0.2 mg/dL (0.15-1.2); Total Protein 5.9 g/dL (6.6-8.7)
[2024-10-02 04:10] LABS: NT Pro B Type Natriuretic Pept 375 pg/mL (0-450)
[2024-10-02 04:28] LABS: Mean Platelet Volume 11.8 fL (7.4-10.4); Slide Review Slide Review Perform
[2024-10-02] MEDS: vancomycin 125 mg Capsule PO ×4 (05:57→23:02)
--- NOTE | 2024-10-02 08:10 | USCV_ITS ---
Sharp Jay Age: 79 Gender: M : 1945 Exam Date: 10/02/2024 10:42 Ordering Phys: Stanford Reyes MD Technologist: Kenny Cummins Exam Location: [facility] [place] Indication: sob BP: 142 / 72 HR: 72 Rhythm: Sinus Technical Quality: Adequate MEASUREMENTS (Male / Female) Normal Values 2D ECHO LV Diastolic Diameter PLAX 4.8 cm 4.2 - 5.9 / 3.9 - 5.3 cm IVS Diastolic Thickness 1.0 cm 0.6 - 1.0 / 0.6 - 0.9 cm IVS Systolic Thickness 1.1 cm LVPW Diastolic Thickness 1.6 cm 0.6 - 1.0 / 0.6 - 0.9 cm LVPW Systolic Thickness 1.7 cm LVOT Diameter 2.0 cm LV Ejection Fraction 2D Teich 55.3 % LV Ejection Fraction MOD 4C 54.6 % LV Ejection Fraction MOD 2C 53.9 % LV Ejection Fraction 2C AL 53.3 % LA Diameter 3.9 cm RA Systolic Volume 4C AL 42.5 ml RA Systolic Volume 4C MOD 43.4 ml LA Sys Volume AL 46.9 cm cubed LA Sys Volume Index AL 25.8 cm cubed/m squared Aorta at Sinotubular Diameter 2.3 cm IVC Diameter 2.1 cm M-MODE LA Ao Ratio MM 1.6 AV Cusp Separation MM 1.8 cm DOPPLER AV Peak Velocity 138.0 cm/s LVOT Peak Velocity 86.0 cm/s AV Area Cont Eq vti 2.2 cm squared AV Area Cont Eq pk 2.0 cm squared MV Peak Velocity 151.0 cm/s MV Area PHT 4.6 cm squared Mitral E to A Ratio 0.7 TV Peak Velocity 271.0 cm/s TR Peak Velocity 299.0 cm/s TR Peak Gradient 35.8 mmHg TR Mean Velocity 250.0 cm/s TR Mean Gradient 25.7 mmHg TR Velocity Time Integral 88.3 cm PV Peak Velocity 88.0 cm/s RV Ejection Time 0.3 s FINDINGS Left Ventricle Normal left ventricular size, systolic function and wall thickness, with no regional wall motion abnormalities. Left ventricular ejection fraction is estimated at 55%. Grade I/IV diastolic dysfunction (abnormal relaxation filling pattern), normal to mildly elevated filling pressures. Right Ventricle The right ventricle is normal in size and function. Right Atrium The right atrium is normal in size. Left Atrium The left atrium is normal in size. Mitral Valve Structurally normal mitral valve without significant stenosis or prolapse. There is no mitral regurgitation. Aortic Valve Structurally normal aortic valve without significant sclerosis or stenosis. There is no aortic regurgitation. Tricuspid Valve Structurally normal tricuspid valve without significant stenosis or regurgitation. Pulmonary artery systolic pressure is normal. Pulmonic Valve Structurally normal pulmonic valve without significant stenosis. There is no pulmonic regurgitation. Pericardium Normal pericardium without effusion. Aorta Normal ascending aorta dimension. IVC The inferior vena cava appears normal. CONCLUSIONS Normal left ventricular size, systolic function and wall thickness, with no regional wall motion abnormalities. Left ventricular ejection fraction is estimated at 55%. Grade I/IV diastolic dysfunction (abnormal relaxation filling pattern), normal to mildly elevated filling pressures. There is no pericardial effusion. No significant valve abnormalities. Right atrial pressure is around 5 mm of mercury. Mariano Macario MD (Electronically Signed) Final Date: 02 October 2024 16:46 S
[2024-10-02] MEDS: amiodarone 200 mg Tablet PO (09:24)
[2024-10-02] MEDS: amlodipine 10 mg Tablet 5 MG PO (09:24)
[2024-10-02] MEDS: AZITHROMYCIN ADD-Vantage 500 MG in 0.9% NaCl ADD-Vantage 250 ML 250 MG IV (09:24)
[2024-10-02] MEDS: folic acid 1 mg Tablet PO (09:24)
[2024-10-02] MEDS: sodium bicarbonate 650 mg Tablet PO ×2 (09:24→17:14)
[2024-10-02] MEDS: cefTRIAXone 1,000 mg SDV 1000 MG IVP (09:24)
--- NOTE | 2024-10-02 10:58 | PC.CHAP ---
Pastoral Care Encounter/Spiritual Assessment Type of Contact [] Declined cable reeler visit [] Patient/Family/Request visit [] Outpatient visit [] Follow-up visit [] Physician referral [] Code/Alert [] Routine visit [] Staff referral [] Actively dying [] Patient sleeping [] Family support [] [] Out of room [] Palliative care [] [] Receiving care in room [] Pre-surgical visit [] Trauma [] Long length of stay [] ICU visit [] Other: Stop Relational/Emotional Strength [] Patient feels connected with others/family/visitors/staff [] Distress [] Loneliness/isolation [] Abandonment Spirituality of Patient [] Person of Cherie [] Attends Faith of their Cherie [] Believes in Prayer [] Reads Bible or Anabaptist materials [] There are Spiritual issues to be addressed Cooker Pie Filling Interventions [] Prayer [] Active listening [] Non-anxious presence [] Spiritual/emotional support [] Crisis/trauma care [] Spiritual counseling [] Bereavement support [] Provided bereavement packet [] Provided Bible/devotional materials [] Provided toy/stuffed animal, coloring book to patient or family member [] Provided Communion [] Anointing/[place] [] Salvation [] Completed spiritual assessment [] Other: Impact on Illness or Injury [] Angry [] Fearful [] Anxious [] Often cries [] Exhaustion [] Unable to work [] Unable to attend jehovah's witness [] Unable to walk/stand [] Unable to read [] Unable to drive [] Unable to eat/drink [] Unable to sleep [] Unable to be with family [] Patient intubated [] Other: Summary Time spent with patient
--- NOTE | 2024-10-02 15:18 | P.PN_ITS ---
Subjective 2 Subjective: Patient was seen this morning, no nausea, no vomiting, no abdominal pain,, no fevers, no chills, no home abscesses, no cough, Vitals/I&O/Wt Last Vital Signs Temp 98.2 F 10/02/24 12:00 Pulse 70 10/02/24 14:00 Resp 16 10/02/24 12:00 BP 139/71 10/02/24 12:00 Pulse Ox 95 10/02/24 12:00 O2 Del Method Room Air 10/02/24 12:00 10/02/24 10/02/24 10/02/24 06:59 14:59 22:59 Intake Total 850 / 850 Balance 850 / 850 Weight last 48 hrs Weight 68.402 kg Weight 66.848 kg Weight 67.676 kg Physical Exam 2 Const: COMMON NORMALS: no acute distress and patient oriented x3 Resp: COMMON NORMALS: normal respiratory effort, No retractions, No use of accessory muscles and clear to auscultation bilaterally AUSCULTATION: clear to auscultation bilaterally Cardio: COMMON NORMALS: regular rate, regular rhythm, S1 normal heart sound present and S2 normal heart sound present RATE: regular rate RHYTHM: r egular rhythm HEART SOUNDS: S1 normal heart sound present and S2 normal heart sound present GI: COMMON NORMALS: Normal to inspection, nondistended, normoactive bowel sounds present and non-tender Extremity: COMMON NORMALS: no pedal edema Neuro: COMMON NORMALS: patient oriented x3 Psych: COMMON NORMALS: mental status grossly normal Data 10/02/24 02:31 10/02/24 02:31 Micro: Microbiology 10/02/24 08:23 Blood Culture - Preliminary Blood SPECIMEN COLLECTED 10/02/24 08:23 Blood Culture - Preliminary Blood SPECIMEN COLLECTED 09/30/24 12:07 Blood Culture - Preliminary Blood 10/01/24 12:30 Stool Lactoferrin - Final Stool Occult Blood (FIT) - Final 09/30/24 12:07 Blood Culture - Preliminary Blood NEGATIVE TO DATE A&P Assessment and plan (1) Fever: (2) Diarrhea: (3) KIA (acute kidney injury): (4) C. difficile colitis: (5) Pneumonia: Plan Nausea, vomiting, fevers, chills, appetite, diarrhea -Likely likely C. difficile colitis Plan -Transition to regular diet -Abdominal exams -Monitor closely Acute kidney injury on CKD, IV fluids discontinued History of thalassemia, with anemia, monitor CT of the chest 2. Focal infiltrate or fibrosis, partially cavitary or containing an emphysematous bleb in the right upper lobe superior -Denying any exposure to tuberculosis, no consumption of raw milk, no hemoptysis, no travel, no risk factors - low risk of TB -Does have a history of smoking -QuantiFERON gold -3 AFB test -Differential is broad, malignancy is certainly a possibility we will have him follow-up with pulmonary as outpatient For concerns for pneumonia -For now continue Rocephin, Zithromycin for concern for pneumonia C. difficile colitis, start p.o. vancomycin Gram-positive cocci and culture 1 out of 4 likely contamination but monitor Full code Lovenox for DVT prophylaxis Attestations 2 Medical Necessity Statement*: Patient requires hospitalization for C. difficile colitis, cavitary lung lesion, pneumonia Diagnoses Fever R50.9 Diarrhea R19.7 KIA (acute kidney injury) N17.9 C. difficile colitis A04.72 Pneumonia J18.9
[2024-10-02] MEDS: pantoprazole 40 mg SDV IVP (17:14)
[2024-10-02] MEDS: enoxaparin 30 mg/0.3 mL Syringe SUBCUT (17:15)
[2024-10-02] MEDS: acetaminophen 325 mg Tablet 650 MG PO (23:02)
[2024-10-02] MEDS: trazodone 50 mg Tablet 25 MG PO (23:03)
[2024-10-02] MEDS: diclofenac 1% Topical Gel 100 gm 1 APPLIC TOPICAL (23:22)
[2024-10-03] VITALS (11 sets, daily range): BP systolic 127–165; BP diastolic 61–77; PULSE 56–71; RESP 15–19; TEMP 36.5–36.7; O2SAT 92–97
--- NOTE | 2024-10-03 00:19 | PC.NURSE ---
Patient asking for something to help him sleep. Dr. Reyez ordered PRN Trazodone. Patient asking for Icy-Hot or [place] creame for his left ankle. We do not carry these medications. Dr. Reyez ordered PRN Voltaren gel.
[2024-10-03] MEDS: vancomycin 125 mg Capsule PO ×4 (03:41→22:33)
[2024-10-03 04:43] LABS: Basophils % 0.6 %; Eosinophils # 0.3 10^3/uL (0.0-0.8); Eosinophils % 5.2 %; Hematocrit 33.1 % (37-53); Lymphocytes % 32.4 %; Mean Corpuscular HGB Conc 29.6 g/dL (30-55); Mean Corpuscular Hemoglobin 19.3 pg (27-33); Mean Corpuscular Volume 65.3 fl (82-101); Monocytes % 15.3 %; Neutrophils % 46.2 %; Nucleated Red Blood Cells % 0 %; Platelet Count 259 10^3/cmm (157-399); Red Blood Count 5.07 10^6/uL (3.85-5.65); Red Cell Distribution Width 18.6 % (12.1-15.1); White Blood Count 6.29 10^3/uL (3.29-11.43)
[2024-10-03 04:57] LABS: Mean Platelet Volume 10.7 fL (7.4-10.4)
[2024-10-03 05:08] LABS: Alanine Aminotransferase 24 U/L (0-41); Albumin Level 3.3 g/dL (3.5-5.2); Alkaline Phosphatase 46 U/L (40-130); Anion Gap 18.1 (5-19); Aspartate Amino Transferase 27 U/L (0-40); Blood Urea Nitrogen 23 mg/dL (8-23); Calcium 7.9 mg/dL (8.5-10.5); Carbon Dioxide 19 mmol/L (22-29); Chloride 103 mmol/L (98-107); Creatinine Clr Calc Pharmacy 31.7675; Globulin 3.2 g/dL (1.3-4.6); Glucose 102 mg/dL (65-115); Osmolality Calculated 286 mOsm/kg (285-295); Potassium 4.1 mmol/L (3.5-5.1); Sodium 136 mmol/L (136-145); Total Bilirubin 0.3 mg/dL (0.15-1.2); Total Protein 6.5 g/dL (6.6-8.7)
[2024-10-03 05:14] LABS: NT Pro B Type Natriuretic Pept 795 pg/mL (0-450); Procalcitonin 1.05 ng/mL (0-0.5)
[2024-10-03] MEDS: sodium bicarbonate 650 mg Tablet PO ×2 (08:20→17:25)
[2024-10-03] MEDS: amlodipine 10 mg Tablet 5 MG PO (08:20)
[2024-10-03] MEDS: amiodarone 200 mg Tablet PO (08:20)
[2024-10-03] MEDS: cefTRIAXone 1,000 mg SDV 1000 MG IVP (08:21)
[2024-10-03] MEDS: AZITHROMYCIN ADD-Vantage 500 MG in 0.9% NaCl ADD-Vantage 250 ML 250 MG IV (08:21)
[2024-10-03] MEDS: folic acid 1 mg Tablet PO (08:21)
[2024-10-03] MEDS: acetaminophen 325 mg Tablet 650 MG PO ×2 (14:59→22:33)
--- NOTE | 2024-10-03 15:20 | P.PN_ITS ---
Subjective 2 Subjective: Patient was seen this morning does report weakness fatigue no hemoptysis, no fevers, chills, nausea, vomiting, abdominal pain Vitals/I&O/Wt Last Vital Signs Temp 97.8 F 10/03/24 11:59 Pulse 67 10/03/24 15:15 Resp 18 10/03/24 11:59 BP 165/77 10/03/24 11:59 Pulse Ox 97 10/03/24 13:49 O2 Del Method Room Air 10/03/24 13:49 10/03/24 10/03/24 10/03/24 06:59 14:59 22:59 Intake Total 730 / 730 Balance 730 / 730 Weight last 48 hrs Weight 70.261 kg Weight 68.402 kg Physical Exam 2 Const: COMMON NORMALS: no acute distress and patient oriented x3 Resp: COMMON NORMALS: normal respiratory effort, No retractions, No use of accessory muscles and clear to auscultation bilaterally AUSCULTATION: clear to auscultation bilaterally Cardio: COMMON NORMALS: regular rate, regular rhythm, S1 normal heart sound present and S2 normal heart sound present RATE: regular rate RHYTHM: r egular rhythm HEART SOUNDS: S1 normal heart sound present and S2 normal heart sound present GI: COMMON NORMALS: Normal to inspection, nondistended, normoactive bowel sounds present and non-tender Extremity: COMMON NORMALS: no pedal edema Neuro: COMMON NORMALS: patient oriented x3 Psych: COMMON NORMALS: mental status grossly normal Data 10/03/24 03:48 10/03/24 03:48 Micro: Microbiology 09/30/24 12:07 Blood Culture - Preliminary Blood 10/02/24 08:23 Blood Culture - Preliminary Blood NEGATIVE TO DATE 10/02/24 08:23 Blood Culture - Preliminary Blood NEGATIVE TO DATE A&P Assessment and plan (1) Fever: (2) Diarrhea: (3) KIA (acute kidney injury): (4) C. difficile colitis: (5) Pneumonia: Plan Nausea, vomiting, fevers, chills, appetite, diarrhea -Likely likely C. difficile colitis Plan -Transition to regular diet -Abdominal exams -Monitor closely Acute kidney injury on CKD, IV fluids discontinued History of thalassemia, with anemia, monitor CT of the chest 2. Focal infiltrate or fibrosis, partially cavitary or containing an emphysematous bleb in the right upper lobe superior -Denying any exposure to tuberculosis, no consumption of raw milk, no hemoptysis, no travel, no risk factors - low risk of TB -Does have a history of smoking -QuantiFERON gold -3 AFB test -Differential is broad, malignancy is certainly a possibility we will have him follow-up with pulmonary as outpatient For concerns for pneumonia -For now continue Rocephin, Zithromycin for concern for pneumonia C. difficile colitis, p.o. vancomycin Gram-positive cocci and culture 1 out of 4 likely contamination but monitor Full code Lovenox for DVT prophylaxis Attestations 2 Medical Necessity Statement*: Patient requires hospitalization for C. difficile colitis Diagnoses Fever R50.9 Diarrhea R19.7 KIA (acute kidney injury) N17.9 C. difficile colitis A04.72 Pneumonia J18.9
[2024-10-03] MEDS: enoxaparin 30 mg/0.3 mL Syringe SUBCUT (17:25)
[2024-10-03] MEDS: pantoprazole 40 mg SDV IVP (17:26)
[2024-10-03] MEDS: trazodone 50 mg Tablet 25 MG PO (22:33)
[2024-10-04] VITALS: BP 141/71; PULSE 67; RESP 17; TEMP 36.3; O2SAT 91
[2024-10-04] MEDS: vancomycin 125 mg Capsule PO ×2 (03:04→10:41)
[2024-10-04 04:00] VITALS: BP 141/65; PULSE 69; RESP 18; TEMP 36.3; O2SAT 94
[2024-10-04 04:36] LABS: Basophils # 0.1 10^3/uL (0.0-0.1); Eosinophils # 0.5 10^3/uL (0.0-0.8); Eosinophils % 9.6 %; Hematocrit 28.4 % (37-53); Lymphocytes % 38.9 %; Mean Corpuscular HGB Conc 29.6 g/dL (30-55); Mean Corpuscular Volume 64.4 fl (82-101); Monocytes # 0.9 10^3/uL (0.2-0.9); Neutrophils % 32.7 %; Nucleated Red Blood Cells % 0 %; Platelet Count 261 10^3/cmm (157-399); Red Blood Count 4.41 10^6/uL (3.85-5.65); Red Cell Distribution Width 17.7 % (12.1-15.1); White Blood Count 5.19 10^3/uL (3.29-11.43)
[2024-10-04 04:44] LABS: Mean Platelet Volume 11.3 fL (7.4-10.4)
[2024-10-04 04:59] LABS: Alanine Aminotransferase 21 U/L (0-41); Albumin Level 3.1 g/dL (3.5-5.2); Alkaline Phosphatase 42 U/L (40-130); Anion Gap 15.9 (5-19); Aspartate Amino Transferase 22 U/L (0-40); Blood Urea Nitrogen 20 mg/dL (8-23); Calcium 7.5 mg/dL (8.5-10.5); Carbon Dioxide 21 mmol/L (22-29); Chloride 105 mmol/L (98-107); Creatinine Clr Calc Pharmacy 33.7848; Globulin 2.6 g/dL (1.3-4.6); Glucose 105 mg/dL (65-115); Osmolality Calculated 289 mOsm/kg (285-295); Potassium 3.9 mmol/L (3.5-5.1); Sodium 138 mmol/L (136-145); Total Bilirubin 0.2 mg/dL (0.15-1.2); Total Protein 5.7 g/dL (6.6-8.7)
[2024-10-04 05:03] LABS: NT Pro B Type Natriuretic Pept 778 pg/mL (0-450); Procalcitonin 0.65 ng/mL (0-0.5)
[2024-10-04 05:05] VITALS: PULSE 64
[2024-10-04] MEDS: diclofenac 1% Topical Gel 100 gm 1 APPLIC TOPICAL (06:31)
[2024-10-04 08:03] VITALS: BP 166/75; PULSE 70; RESP 16; TEMP 36.6; O2SAT 96
[2024-10-04 10:00] VITALS: O2SAT 96
[2024-10-04] MEDS: amiodarone 200 mg Tablet PO (10:41)
[2024-10-04] MEDS: sodium bicarbonate 650 mg Tablet PO (10:41)
[2024-10-04] MEDS: amlodipine 10 mg Tablet 5 MG PO (10:41)
[2024-10-04] MEDS: folic acid 1 mg Tablet PO (10:41)
[2024-10-04 11:13] VITALS: BP 148/76; PULSE 71; RESP 15; TEMP 36.6; O2SAT 93
--- NOTE | 2024-10-04 11:17 | PM.DCS ---
Discharge Providers Date of Admission: 10/01/24 14:15 Date of Discharge: October 04, 2024 Attending Provider at Admission: Stanford Reyes MD Attending Provider at Discharge: Stanford Reyes MD Primary Care Provider: Amrita Restrepo MD Diagnoses at Discharge Discharge Diagnosis (1) Fever: Status: Acute (2) Diarrhea: Status: Acute (3) KIA (acute kidney injury): Status: Acute (4) C. difficile colitis: Status: Acute (5) Pneumonia: Status: Acute Reason for Visit Reason for Visit: sick Hospital Course Hospital Course Jay Sharp is a 79 year old male The patient, who has a history of chronic kidney disease and thalassemia, hepatitis A, symptomatic PVCs, presented to the hospital after experiencing disorientation, vomiting, diarrhea, and weakness since last night. The patient reports feeling terrible and has had a fever at home. Approximately six months ago, the patient was diagnosed with Hepatitis A after experiencing a low-grade fever. The patient was advised that there was no medication for it and that it would resolve on its own, which it did, but symptoms returned two weeks later. The patient denies any recent exposure to tuberculosis, raw milk consumption, or contact with individuals with Hepatitis. The patient suspects food poisoning from lasagna prepared at home. The patient denies abdominal pain but reports diarrhea without blood. The patient has a history of smoking but quit on May 22. The patient has not fallen recently but felt weak last night. The patient was advised to stop taking Lisinopril due to kidney concerns. Denies exposure to tuberculosis denies a prior history of tuberculosis, denies any hemoptysis, no cough, no exposure to raw milk. No recent travel,, no recent history of food poisoning no IV drug use does report diarrhea but no blood or black stools Patient was admitted to [facility] for nausea, vomiting, fevers, chills, decreased appetite, likely component of dehydration, received IV fluids, overall clinically improved For patient's C. difficile colitis, tested positive, discharged on p.o. vancomycin For KIA, received IV fluids Patient CT of the chest showed CT of the chest 2. Focal infiltrate or fibrosis, partially cavitary or containing an emphysematous bleb in the right upper lobe superior -Denying any exposure to tuberculosis, no consumption of raw milk, no hemoptysis, no travel, no risk factors - low risk of TB -Does have a history of smoking -QuantiFERON gold so far pending -Mycobacterium cultures, so far negative -He was admitted, received broad-spectrum antibiotic therapy, for concerns for pneumonia overall clinically improved -Reviewed his imaging with pulmonary, CT imaging findings as above are more reflective of fibrosis however cannot rule out underlying possibility of malignancy -Nonetheless, we will have a follow-up with hematology oncology for consideration of PET scanning in 1 month -Follow-up with pulmonary in 1 month -Patient did not have any fevers, chills, hemoptysis during his hospitalization I think the likelihood of pulmonary TB is fairly unlikely -Nonetheless patient was advised if he were to have any hemoptysis, fevers, chills, to go to emergency room Physical Exam Const: COMMON NORMALS: no acute distress and patient oriented x3 Resp: COMMON NORMALS: normal respiratory effort, No retractions, No use of accessory muscles and clear to auscultation bilaterally AUSCULTATION: clear to auscultation bilaterally Cardio: COMMON NORMALS: regular rate, regular rhythm, S1 normal heart sound present and S2 normal heart sound present RATE: regular rate RHYTHM: regular rhythm HEART SOUNDS: S1 normal heart sound present and S2 normal heart sound present GI: COMMON NORMALS: Normal to inspection, nondistended, normoactive bowel sounds present and non-tender Extremity: COMMON NORMALS: no pedal edema Neuro: COMMON NORMALS: patient oriented x3 Psych: COMMON NORMALS: mental status grossly normal Discharge Data Studies Completed and Pending Completed Studies During Hospitalization Category Date Time Status CT chest abdomen pelvis [[place] [id number]/[id number] Cat Scan 09/30/24 13:23 Completed ] Stat XR chest 1V 25218 Stat Exams 09/30/24 11:58 Completed CV. echo complete* [id number] Routine Ultrasound 10/02/24 08:10 Completed Pending at discharge Category Date Time Status 1-3 Beta D Glucan [Fungitell Glucan Assay (Blood)] Lab 09/30/24 16:13 Received Routine AFB [Mycobacteria, Culture w/Fluor] Stat Lab 09/30/24 16:11 Results AFB [Mycobacteria, Culture w/Fluor] Stat Lab 10/02/24 10:15 Ordered Blood Culture Stat Lab 09/30/24 12:07 Results Blood Culture Stat Lab 10/02/24 08:23 Results Mycobacterium TB Respiratory Routine Lab 09/30/24 18:28 Received OVA and Parasites, Conc and PE Routine Lab 09/30/24 15:56 Ordered Fjohpauelrr-TR-Jfjw Plus Routine Lab 09/30/24 16:13 Received Salmonella / Shigella / Campy Routine Lab 09/30/24 15:56 Ordered Radiology Impressions Chest X-Ray 09/30/24 11:58 IMPRESSION: Chronic lung changes compatible with central lobar emphysema and small airway disease. Abnormality in the right upper lung of unknown chronicity. This may be an inflammatory process. Recommend follow-up chest x-ray in 7 to 10 days with additional imaging based on the findings at that time. Chest/Abdomen/Pelvis CT 09/30/24 13:23 IMPRESSION: 1. Scattered semi-solid nodules. These may represent fibrosis, active inflammation, or less likely small masses. Follow-up chest CT in 3 months recommended. 2. Focal infiltrate or fibrosis, partially cavitary or containing an emphysematous bleb in the right upper lobe superior IMPRESSION: No acute subdiaphragmatic pathology. Laboratory Results WBC 5.19 10^3/uL (3.29-11.43) 10/04/24 03:00 RBC 4.41 10^6/uL (3.85-5.65) 10/04/24 03:00 Hgb 8.40 g/dL (11.27-16.99) L 10/04/24 03:00 Hct 28.4 % (37-53) L 10/04/24 03:00 MCV 64.4 fl (82-101) L 10/04/24 03:00 MCH 19.0 pg (27-33) L 10/04/24 03:00 MCHC 29.6 g/dL (30-55) L 10/04/24 03:00 RDW 17.7 % (12.1-15.1) H 10/04/24 03:00 Plt Count 261 10^3/cmm (157-399) 10/04/24 03:00 MPV 11.3 fL (7.4-10.4) H 10/04/24 03:00 Neut % (Auto) 32.7 % 10/04/24 03:00 Lymph % (Auto) 38.9 % 10/04/24 03:00 [place] % (Auto) 17.0 % 10/04/24 03:00 Eos % (Auto) 9.6 % 10/04/24 03:00 Baso % (Auto) 1.0 % 10/04/24 03:00 Neut # (Auto) 1.70 10^3/uL (1.8-7.7) L 10/04/24 03:00 Lymph # (Auto) 2.0 10^3/uL (0.8-4.8) 10/04/24 03:00 [place] # (Auto) 0.9 10^3/uL (0.2-0.9) 10/04/24 03:00 Eos # (Auto) 0.5 10^3/uL (0.0-0.8) 10/04/24 03:00 Baso # (Auto) 0.1 10^3/uL (0.0-0.1) 10/04/24 03:00 Nucleated RBC % (auto) 0 % 10/04/24 03:00 Nucleated RBCs # 0.0 /100WBC 10/04/24 03:00 Sodium 138 mmol/L (136-145) 10/04/24 03:00 Potassium 3.9 mmol/L (3.5-5.1) 10/04/24 03:00 Chloride 105 mmol/L (98-107) 10/04/24 03:00 Carbon Dioxide 21 mmol/L (22-29) L 10/04/24 03:00 Anion Gap 15.9 (5-19) 10/04/24 03:00 BUN 20 mg/dL (8-23) 10/04/24 03:00 Creatinine 1.7 mg/dL (0.7-1.2) H 10/04/24 03:00 GFR Calculation Not Reportable 10/04/24 03:00 Glucose 105 mg/dL (65-115) 10/04/24 03:00 Estimat Average Glucose 97 09/30/24 12:07 Hemoglobin A1c 5.0 % (4.0-6.0) 09/30/24 12:07 Calculated Osmolality 289 mOsm/kg (285-295) 10/04/24 03:00 Lactic Acid 1.0 mmol/L (0.5-2.2) 09/30/24 16:13 Calcium 7.5 mg/dL (8.5-10.5) L 10/04/24 03:00 Phosphorus 2.9 mg/dL (2.5-4.5) 10/01/24 05:07 Magnesium 2.0 mg/dL (1.7-2.3) 10/01/24 05:07 Iron 22 ug/dL (59-158) L 09/30/24 12:07 Ferritin 201 ng/mL (30-400) 09/30/24 12:07 Total Bilirubin 0.2 mg/dL (0.15-1.2) 10/04/24 03:00 AST 22 U/L (0-40) 10/04/24 03:00 ALT 21 U/L (0-41) 10/04/24 03:00 Alkaline Phosphatase 42 U/L (40-130) 10/04/24 03:00 Lactate Dehydrogenase 196 U/L (135-225) 09/30/24 12:07 C-Reactive Protein 26.0 mg/L (0.0-4.9) H 10/04/24 03:00 NT-Pro-B Natriuret Pep 778 pg/mL (0-450) H 10/04/24 03:00 Total Protein 5.7 g/dL (6.6-8.7) L 10/04/24 03:00 Albumin 3.1 g/dL (3.5-5.2) L 10/04/24 03:00 Globulin 2.6 g/dL (1.3-4.6) 10/04/24 03:00 Triglycerides 118 mg/dL (0-150) 09/30/24 16:13 Cholesterol 135 mg/dL (0-200) 09/30/24 16:13 LDL Cholesterol, Calc 78 mg/dL (50-129) 09/30/24 16:13 HDL Cholesterol 33 mg/dL (60-100) L 09/30/24 16:13 LDL/HDL Ratio 2.36 RATIO (0.00-3.22) 09/30/24 16:13 Cholesterol/HDL Ratio 4.09 mg/dL (1.0-5.00) 09/30/24 16:13 Procalcitonin 0.65 ng/mL (0-0.5) H 10/04/24 03:00 TSH 0.72 uIU/mL (0.27-4.20) 09/30/24 16:13 Urine Color Yellow (Yellow) 09/30/24 12:40 Urine Appearance Clear (CLEAR) 09/30/24 12:40 Urine pH 5.0 (5-7) 09/30/24 12:40 Ur Specific [place] 1.020 (1.005-1.030) 09/30/24 12:40 Urine Protein 2+ (Negative) A 09/30/24 12:40 Urine Glucose (UA) Negative (Normal) 09/30/24 12:40 Urine Ketones Trace (Negative) 09/30/24 12:40 Urine Blood Negative (Negative) 09/30/24 12:40 Urine Nitrate Negative (Negative) 09/30/24 12:40 Urine Bilirubin Negative (Negative) 09/30/24 12:40 Urine Urobilinogen 1.0 mg/dL (Negative) 09/30/24 12:40 Ur Leukocyte Esterase Negative (Negative) 09/30/24 12:40 Urine RBC 0-2 /hpf (0-2) 09/30/24 12:40 Urine WBC 0-5 /hpf (0-5) 09/30/24 12:40 Ur Squamous Epith Cells 0-5 /hpf (0-5) 09/30/24 12:40 Amorphous Sediment Not Reportable 09/30/24 12:40 Urine Bacteria None seen /hpf (NONE) 09/30/24 12:40 Hyaline Casts 12.81 /lpf 09/30/24 12:40 C. difficile (PCR) Positive (Negative) H 10/01/24 12:30 Coronavirus (PCR) Negative (Negative) 09/30/24 12:00 Hepatitis A IgM Ab Non-reactive (Nonreactive) 09/30/24 12:07 Hep Bs Antigen Non-reactive (Nonreactive) 09/30/24 12:07 Hep B Core IgM Ab Non-reactive (Nonreactive) 09/30/24 12:07 Hepatitis C Antibody Non-reactive (Nonreactive) 09/30/24 12:07 HIV 1&2 Ab & HIV 1 Ag Non-reactive (Non-Reactiv) 09/30/24 12:07 HIV 1&2 Antibody Non-reactive (Non-Reactiv) 09/30/24 12:07 Influenza A (PCR) Negative (Negative) 09/30/24 12:00 Influenza Type B (PCR) Negative (Negative) 09/30/24 12:00 RSV (PCR) Negative (Negative) 09/30/24 12:00 Vitals Last Vital Signs Temp 97.8 F 10/04/24 08:03 Pulse 70 10/04/24 08:03 Resp 16 10/04/24 08:03 BP 166/75 10/04/24 08:03 Pulse Ox 96 10/04/24 08:03 O2 Del Method Room Air 10/04/24 08:03 Discharge Plan Discharge Patient Disposition: Home Condition: Stable Prescriptions: New vancomycin 125 mg Capsule 125 mg PO Q6H 9 Days Qty: 36 0RF Continued sodium bicarbonate 650 mg tablet 650 mg PO BID furosemide [Lasix] 20 mg tablet 20 mg PO DAILY cholecalciferol (vitamin D3) 50 mcg (2,000 unit) capsule 50 mcg PO DAILY terbinafine HCl [Antifungal (terbinafine)] 1 % cream 1 applic topical BID Qty: 30 5RF efinaconazole 10 % solution with applicator 1 applic topical DAILY 30 Days Qty: 8 11RF Rx Instructions: apply 1 drop to each affected toenail, 2 drops to big toe amlodipine 10 mg tablet 5 mg PO DAILY Qty: 90 2RF fluconazole 150 mg tablet 150 mg PO .WEEKLY 84 Days Qty: 12 2RF ketoconazole 2 % shampoo 1 applic topical DAILY Qty: 120 5RF Rx Instructions: leave 5 min then wash off amiodarone 200 mg tablet 200 mg PO DAILY Qty: 90 3RF folic acid 1 mg Tablet 1 mg PO DAILY Discharge Orders: Discharge Order (Routine); Ordered 10/04/24 Ordered By: Stanford Reyes Referrals: Ubaldo Horn MD [Hospitalist] - 1-3 days Oli Samano MD, MBBS, MPH [Referring] - 1-3 days Amrita Restrepo MD [Primary Care Provider] - Patient Instructions: Vancomycin (By mouth), Dehydration (DC), Acute Kidney Injury (DC), C. Diff (Clostridioides Difficile) Infection (DC), Opioid Safety Activity Restrictions/Additional Instructions: - For your C. difficile colitis, continue p.o. vancomycin 125 mg p.o. every 6 hours -For your right upper lobe lung mass, please follow-up with oncology for consideration of PET scan within 2 to 4 weeks -I have also sent off a referral for pulmonary for consideration of biopsy in 2 to 4 weeks Discharge Attestations Time Spent in Discharge Care*: greater than 30 min Status at Discharge: Cognitive status at discharge: cognitively intact, Behavioral status at discharge: cooperative, Quality Metrics Clinical Quality Measures [ No reported AMI, CVA or VTE this stay] Coding Level of Care Code 25460 Total time (in minutes) for Discharge: 45 Diagnoses Fever R50.9 Diarrhea R19.7 KIA (acute kidney injury) N17.9 C. difficile colitis A04.72 Pneumonia J18.9
[2024-10-08 09:55] LABS: Quantiferon Mitogen 7.37 IU/mL; Quantiferon Nil 2.06 IU/mL; Quantiferon Plus TB1 0.13 IU/mL; Quantiferon Plus TB2 0.33 IU/mL; Quantiferon TB Gold NEGATIVE (NEGATIVE)
== END 2024-10-04 13:15 | disposition home or self-care (01) | DRG 371 ==
LOC: ER 16:23 → MEDSURG 17:19
PROVIDERS: Admitting Provider Family Medicine; Emergency Provider Emergency Medicine; PCP Family Medicine; Visit Provider Family Medicine
DX: A04.72 Enterocolitis due to Clostridium difficile, not specified as recurrent (principal); J18.9 Pneumonia, unspecified organism; N17.9 Acute kidney failure, unspecified; I12.9 Hypertensive chronic kidney disease with stage 1 through stage 4 chronic kidney disease, or unspecified chronic kidney disease; N18.9 Chronic kidney disease, unspecified; D56.9 Thalassemia, unspecified; I49.3 Ventricular premature depolarization; E86.0 Dehydration; R91.1 Solitary pulmonary nodule; Z87.891 Personal history of nicotine dependence
CPT/HCPCS: 12345; 36415; 71045; 71250; 74176; 80053; 80061; 80074; 81001; 82274; 82728; 83036; 83540; 83605; 83615; 83630; 83735; 83880; 84100; 84145; 84443; 85025; 86140; 86480; 87015; 87040; 87077; 87116; 87150; 87205; 87206; 87449; 87493; 87556; 87637; 87801; 87806; 92523; 92610; 93005; 93306; 94664; 96372; 96374; 96375; 97110; 99285; G0378; J0456; J0696; J1650; J2405; J2470; J7030; J7050

== ENCOUNTER → 2024-11-08 13:56 | Outpatient (BNVA) | payer SELFPAY | PROVIDERS: PCP Family Medicine; Referring Provider Family Medicine; Visit Provider Family Medicine | DX: N18.4 Chronic kidney disease, stage 4 (severe) (principal); A04.72 Enterocolitis due to Clostridium difficile, not specified as recurrent | CPT/HCPCS: 80069; 82310; 82570; 83970; 84156; 85025; 87493 ==

== ENCOUNTER → 2024-11-15 16:06 | Outpatient (BNVA) | payer SELFPAY | PROVIDERS: PCP Family Medicine; Visit Provider Nurse Practitioner Family | DX: R00.2 Palpitations (principal); I49.3 Ventricular premature depolarization; I10 Essential (primary) hypertension; Z79.899 Other long term (current) drug therapy; Z87.891 Personal history of nicotine dependence; R94.31 Abnormal electrocardiogram [ECG] [EKG] | CPT/HCPCS: 93005 ==

== ENCOUNTER → 2024-12-07 10:36 | Outpatient (BNVA) | payer SELFPAY | PROVIDERS: PCP Family Medicine; Visit Provider Family Medicine | DX: K52.9 Noninfective gastroenteritis and colitis, unspecified (principal) | CPT/HCPCS: 83630; 87493 ==

== ENCOUNTER → 2024-12-16 13:17 | Outpatient (BNVA) | payer SELFPAY | PROVIDERS: PCP Family Medicine; Referring Provider Family Medicine; Visit Provider Family Medicine | DX: K52.9 Noninfective gastroenteritis and colitis, unspecified (principal) | CPT/HCPCS: 87045; 87081; 87177; 87209; 87427; 87449 ==

== ENCOUNTER → 2025-01-21 14:58 | Outpatient (BNVA) | payer SELFPAY | PROVIDERS: PCP Family Medicine; Visit Provider Nurse Practitioner | DX: R05.9 Cough, unspecified (principal) | CPT/HCPCS: 71046; 81000; 87086 ==

== ENCOUNTER 2025-02-10 23:03 | Emergency (ER) | payer SELFPAY ==
[2025-02-10 23:06] VITALS: BP 115/64; PULSE 107; RESP 18; TEMP 39.4; O2SAT 99; BMI 22.1
[2025-02-11 00:02] LABS: Basophils # 0.1 10^3/uL (0.0-0.1); Basophils % 0.7 %; Eosinophils # 0.2 10^3/uL (0.0-0.8); Eosinophils % 2.2 %; Hematocrit 39.1 % (37-53); Lymphocytes # 0.9 10^3/uL (0.8-4.8); Lymphocytes % 8.2 %; Mean Corpuscular HGB Conc 30.2 g/dL (30-55); Mean Corpuscular Volume 63.1 fl (82-101); Monocytes # 0.8 10^3/uL (0.2-0.9); Monocytes % 7.5 %; Neutrophils # 8.55 10^3/uL (1.8-7.7); Neutrophils % 79.8 %; Nucleated Red Blood Cells % 0.4 %; Platelet Count 249 10^3/cmm (157-399); Red Cell Distribution Width 19.7 % (12.1-15.1); White Blood Count 10.73 10^3/uL (3.29-11.43)
[2025-02-11 00:14] LABS: Influenza A NEGATIVE (Negative); Influenza B NEGATIVE (Negative); Respiratory Syncytial Virus Ce NEGATIVE (Negative); SARS-CoV-2 PCR NEGATIVE (Negative)
[2025-02-11 00:20] LABS: Alanine Aminotransferase 16 U/L (0-41); Albumin Level 3.8 g/dL (3.5-5.2); Alkaline Phosphatase 67 U/L (40-130); Anion Gap 21.6 (5-19); Aspartate Amino Transferase 19 U/L (0-40); Blood Urea Nitrogen 47 mg/dL (8-23); Calcium 8.8 mg/dL (8.5-10.5); Carbon Dioxide 21 mmol/L (22-29); Chloride 99 mmol/L (98-107); Creatinine Clr Calc Pharmacy 18.4073; Globulin 3.9 g/dL (1.3-4.6); Glucose 128 mg/dL (65-115); Osmolality Calculated 296 mOsm/kg (285-295); Potassium 5.6 mmol/L (3.5-5.1); Sodium 136 mmol/L (136-145); Total Bilirubin 0.4 mg/dL (0.15-1.2); Total Protein 7.7 g/dL (6.6-8.7)
[2025-02-11 00:26] LABS: Slide Review Slide Review Perform
[2025-02-11 03:52] VITALS: BP 168/74; PULSE 75; RESP 18; TEMP 37.2; O2SAT 95
--- NOTE | 2025-02-11 03:58 | XRR_ITS ---
PROCEDURE INFORMATION: Exam: XR Chest Exam date and time: 02/11/2025 3:59 AM Age: 79 years old Clinical indication: C/O high grade fever TECHNIQUE: Imaging protocol: Radiologic exam of the chest. Views: 1 view. COMPARISON: CR XR chest 2V* [id number] 01/21/2025 2:59 PM FINDINGS: Lungs: Moderate underlying COPD. Diffuse interstitial prominence has mildly progressed. No new consolidation. Pleural spaces: Unremarkable. No pleural effusion. No pneumothorax. Heart/Mediastinum: Heart is large. Advanced diffuse vascular calcification noted. Bones/joints: No new bone lesion. XR/XR chest 1V portable [id number] IMPRESSION: 1. Compared to 01/21/2025, progressive diffuse interstitial prominence which may suggest progressive areas of atypical infection, bronchitis, interstitial edema, etc. 2. No new airspace consolidation is identified focally. 3. No other change has occurred. Chronic findings again seen.
--- NOTE | 2025-02-11 04:15 | ECG_ITS ---
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 Measurements Intervals Ada Rate: 76 P: 50 MT: 175 QRS: 111 QRSD: 105 T: 69 QT: 406 QTc: 457 Interpretive Statements SINUS RHYTHM POSSIBLE LEFT ATRIAL ENLARGEMENT [-0.1mV P-WAVE IN V1/V2] LEFT POSTERIOR FASCICULAR BLOCK [QRS AXIS > 109, INFERIOR Q] SEPTAL MYOCARDIAL INFARCTION , OF INDETERMINATE AGE [40+ ms Q WAVE IN V1/V2] Compared to ECG 11/15/2024 16:08:41 Left posterior fascicular block now present Myocardial infarct finding now present Ventricular premature complex(es) no longer present Right-axis deviation no longer present Prolonged QT interval no longer present Electronically Signed On 02-15-2025 11:47:45 CDT by Eduardo Zhu M.D. [email or web address]
[2025-02-11 04:25] LABS: Basophils # 0.1 10^3/uL (0.0-0.1); Basophils % 0.7 %; Eosinophils # 0.1 10^3/uL (0.0-0.8); Eosinophils % 0.8 %; Hematocrit 34.9 % (37-53); Lymphocytes % 9.5 %; Mean Corpuscular HGB Conc 30.7 g/dL (30-55); Mean Corpuscular Hemoglobin 18.9 pg (27-33); Mean Corpuscular Volume 61.6 fl (82-101); Monocytes # 0.9 10^3/uL (0.2-0.9); Monocytes % 8.3 %; Neutrophils # 8.13 10^3/uL (1.8-7.7); Nucleated Red Blood Cells % 0.2 %; Platelet Count 225 10^3/cmm (157-399); Red Blood Count 5.67 10^6/uL (3.85-5.65); Red Cell Distribution Width 19.1 % (12.1-15.1); White Blood Count 10.28 10^3/uL (3.29-11.43)
[2025-02-11] MEDS: acetaminophen 325 mg Tablet 650 MG PO (04:33)
[2025-02-11] MEDS: sodium chloride 0.9% 1,000 ML 999 ML IV (04:36)
--- NOTE | 2025-02-11 04:46 | W.ED.GENADLT ---
HPI - General Adult General: Chief complaint: General Medical Stated complaint: high Fever nausea confused can't walk Time Seen by Provider: 02/11/25 03:35 History of Present Illness: Patient is a well-appearing 79-year-old male seen for fever and general aches. He states symptoms came on after eating some chicken. He was recently diagnosed with alpha gal and states that he typically can eat chicken without any difficulty. He endorses mild cough but otherwise denies sinus pressure, sore throat, abdominal pain, though he does have some nausea and states that he has had diarrhea frequently over the last week. He has no other acute complaints. On arrival, temperature was 103 and it decreased to 98.9 without being given any antipyretics. Related Data Home Medications ?Medication ?Instructions ?Recorded ?Confirmed folic acid 1 mg tablet 1 mg PO DAILY 03/15/22 01/27/25 furosemide 20 mg tablet (Lasix) 20 mg PO DAILY 01/07/23 01/27/25 sodium bicarbonate 650 mg tablet 650 mg PO BID 01/07/23 01/27/25 amlodipine 10 mg tablet 10 mg PO DAILY 12/07/24 01/27/25 Previous Rx's ?Medication ?Instructions ?Recorded efinaconazole 10 % topical 1 applic topical DAILY 30 days #8 02/17/24 solution with applicator mL terbinafine HCl 1 % topical cream 1 applic topical BID #30 grams 02/17/24 (Antifungal (terbinafine)) amiodarone 200 mg tablet 200 mg PO DAILY #90 tabs 05/05/24 ketoconazole 2 % shampoo 1 applic topical DAILY #120 mL 05/18/24 doxycycline hyclate 100 mg capsule 100 mg PO BID #20 caps 01/21/25 prednisone 20 mg tablet See Rx Instructions PO .q AM 14 01/27/25 days #17 tabs Allergies Allergy/AdvReac Type Severity Reaction Status Date / Time lisinopril AdvReac Severe hyperkalemi Verified 01/27/25 08:32 a [facility] ED PFS: Medical History Bradycardia Tension headache Allergic rhinitis CKD (chronic kidney disease) Thalassemia Depression Smoking Hypertension did not tolerate nifedipine Surgical History No pertinent past surgical history Family History Father Arrhythmia Sister Arrhythmia Other Thalassemia Denies family history of Diabetes Stroke Social History Smoking and tobacco/nicotine status: former use of tobacco/nicotine Alcohol intake: former Year of sobriety/quit date alcohol: 1994 Substance/Drug Use: never Caregiver/support person: Yes Lives independently: Yes Household members: spouse Housing: House Marital status: Current gender identity: Male Physical Exam Const: COMMON NORMALS: no acute distress, patient oriented x3 and alert HENMT: COMMON NORMALS: normocephalic and atraumatic HEAD & SCALP: normocephalic and atraumatic Eye: COMMON NORMALS: Equal, round and reactive pupils present, EOMs intact bilaterally and no scleral icterus PUPIL: Yes Equal, round and reactive pupils present Resp: COMMON NORMALS: normal respiratory effort and No retractions Cardio: COMMON NORMALS: regular rate, regular rhythm and No murmurs present (Cardio) RATE: regular rate RHYTHM: regular rhythm GI: COMMON NORMALS: Normal to inspection, nondistended, normoactive bowel sounds present, Soft to palpation and non-tender PALPATION: Yes Soft to palpation Neuro: COMMON NORMALS: patient oriented x3 SENSORIUM/ORIENTATION: Yes alert Skin: COMMON NORMALS: no rashes or lesions noted GENERAL SKIN EXAM: no rashes or lesions noted Course Vital Signs: Vital signs: Vital Signs Temperature 98.9 F 02/11/25 03:52 Pulse Rate 75 02/11/25 03:52 Respiratory Rate 18 02/11/25 03:52 Blood Pressure 168/74 02/11/25 03:52 Pulse Oximetry 95 02/11/25 03:52 Oxygen Delivery Me thod Room Air 02/11/25 03:52 [facility] - General Adult Medical Decision Making In summary, patient is a generally well-appearing 79-year-old male from home seen for fever. Symptoms came on shortly after eating a chicken sandwich. He was recently diagnosed with alpha gal and is suspicious that there may have been a gelatin product in the chicken slices. There is no other obvious infectious etiology to his fever which has remitted spontaneously without need for antipyretics. Chest x-ray shows some chronic findings but none of which imply acute pneumonia. White blood cell count is not elevated. He was given IV fluids for mild KIA on CKD and will be discharged home in stable and improved condition with follow-up primary care as needed. Lab Data 02/11/25 04:13 02/10/25 23:48 Radiology Impressions Chest X-Ray 02/11/25 03:58 IMPRESSION: 1. Compared to 01/21/2025, progressive diffuse interstitial prominence which may suggest progressive areas of atypical infection, bronchitis, interstitial edema, etc. 2. No new airspace consolidation is identified focally. 3. No other change has occurred. Chronic findings again seen. Laboratory Results WBC 10.28 10^3/uL (3.29-11.43) 02/11/25 04:13 RBC 5.67 10^6/uL (3.85-5.65) H 02/11/25 04:13 Hgb 10.70 g/dL (11.27-16.99) L 02/11/25 04:13 Hct 34.9 % (37-53) L 02/11/25 04:13 MCV 61.6 fl (82-101) L 02/11/25 04:13 MCH 18.9 pg (27-33) L 02/11/25 04:13 MCHC 30.7 g/dL (30-55) 02/11/25 04:13 RDW 19.1 % (12.1-15.1) H 02/11/25 04:13 Plt Count 225 10^3/cmm (157-399) 02/11/25 04:13 MPV Not Reportable 02/11/25 04:13 Neut % (Auto) 79.0 % 02/11/25 04:13 Lymph % (Auto) 9.5 % 02/11/25 04:13 [place] % (Auto) 8.3 % 02/11/25 04:13 Eos % (Auto) 0.8 % 02/11/25 04:13 Baso % (Auto) 0.7 % 02/11/25 04:13 Neut # (Auto) 8.13 10^3/uL (1.8-7.7) H 02/11/25 04:13 Lymph # (Auto) 1.0 10^3/uL (0.8-4.8) 02/11/25 04:13 [place] # (Auto) 0.9 10^3/uL (0.2-0.9) 02/11/25 04:13 Eos # (Auto) 0.1 10^3/uL (0.0-0.8) 02/11/25 04:13 Baso # (Auto) 0.1 10^3/uL (0.0-0.1) 02/11/25 04:13 Nucleated RBC % (auto) 0.2 % 02/11/25 04:13 Nucleated RBCs # 0.0 /100WBC 02/11/25 04:13 Sodium 136 mmol/L (136-145) 02/10/25 23:48 Potassium 5.6 mmol/L (3.5-5.1) H 02/10/25 23:48 Chloride 99 mmol/L (98-107) 02/10/25 23:48 Carbon Dioxide 21 mmol/L (22-29) L 02/10/25 23:48 Anion Gap 21.6 (5-19) H 02/10/25 23:48 BUN 47 mg/dL (8-23) H 02/10/25 23:48 Creatinine 3.1 mg/dL (0.7-1.2) H 02/10/25 23:48 GFR Calculation Not Reportable 02/10/25 23:48 Glucose 128 mg/dL (65-115) H 02/10/25 23:48 Calculated Osmolality 296 mOsm/kg (285-295) H 02/10/25 23:48 Calcium 8.8 mg/dL (8.5-10.5) 02/10/25 23:48 Total Bilirubin 0.4 mg/dL (0.15-1.2) 02/10/25 23:48 AST 19 U/L (0-40) 02/10/25 23:48 ALT 16 U/L (0-41) 02/10/25 23:48 Alkaline Phosphatase 67 U/L (40-130) 02/10/25 23:48 Total Protein 7.7 g/dL (6.6-8.7) 02/10/25 23:48 Albumin 3.8 g/dL (3.5-5.2) 02/10/25 23:48 Globulin 3.9 g/dL (1.3-4.6) 02/10/25 23:48 Influenza A (PCR) Negative (Negative) 02/10/25 23:28 Influenza Type B (PCR) Negative (Negative) 02/10/25 23:28 RSV (PCR) Negative (Negative) 02/10/25 23:28 SARS-CoV-2 (PCR) Negative (Negative) 02/10/25 23:28 All radiology interpretation(s) finalized by discharge EKG Data EKG 1: Interpretation: Time?414?sinus rhythm, rate of 76, no ST segment elevation or depression, no T wave inversions, intervals within normal limits. QTc = 436 Computer generated interpretation: Chest X-Ray 02/11/25 03:58 IMPRESSION: 1. Compared to 01/21/2025, progressive diffuse interstitial prominence which may suggest progressive areas of atypical infection, bronchitis, interstitial edema, etc. 2. No new airspace consolidation is identified focally. 3. No other change has occurred. Chronic findings again seen. Discharge Plan Discharge Patient Disposition: Home Clinical Impression: Fever, Acute kidney injury superimposed on chronic kidney disease Condition: Stable Prescriptions: No Action sodium bicarbonate 650 mg tablet 650 mg PO BID furosemide [Lasix] 20 mg tablet 20 mg PO DAILY terbinafine HCl [Antifungal (terbinafine)] 1 % cream 1 applic topical BID Qty: 30 5RF efinaconazole 10 % solution with applicator 1 applic topical DAILY 30 Days Qty: 8 11RF Rx Instructions: apply 1 drop to each affected toenail, 2 drops to big toe amlodipine 10 mg tablet 10 mg PO DAILY ketoconazole 2 % shampoo 1 applic topical DAILY Qty: 120 5RF Rx Instructions: leave 5 min then wash off doxycycline hyclate 100 mg capsule 100 mg PO BID Qty: 20 0RF prednisone 20 mg tablet See Rx Instructions PO .q AM 14 Days Qty: 17 0RF Rx Instructions: Day 1-5: 2 tabs, Day 6-10: 1 tabs, Day 11-14: 1/2 tabs PO .q AM; amiodarone 200 mg tablet 200 mg PO DAILY Qty: 90 3RF folic acid 1 mg Tablet 1 mg PO DAILY Discharge Orders: Discharge ED (Routine); Ordered 02/11/25 Ordered By: Bj Martinez Referrals: Amrita Restrepo MD [Primary Care Provider, [facility]] Discharge Diet: Advance as tolerated Discharge Activity: Increase activity as tolerated Patient Instructions: Fever - Adult, Acute Kidney Injury (DC) Activity Restrictions/Additional Instructions: As we discussed, please drink a little bit more water to account for your dehydration noticed on labs. If you have worsening cough or fever please return to the emergency department. Print Language: Angolan Coding Level of Care Code ED Enterprise Software Developer for Karma Ferrell
[2025-02-11 05:00] VITALS: BP 138/81; PULSE 86; RESP 16; O2SAT 96
[2025-02-11 06:11] VITALS: BP 131/89; PULSE 79; RESP 16; O2SAT 96
[2025-02-11 06:24] LABS: Bilirubin Urine Negative (Negative); Blood Urine Negative (Negative); Glucose Urine UA Negative (Normal); Ketones Urine Negative (Negative); Leukocyte Esterase Urine Negative (Negative); Nitrate Urine Negative (Negative); Protein Urine 2+ (Negative); Specific Gravity, Urine 1.015 (1.005-1.030); Urine Appearance Clear (CLEAR); Urine Color Yellow (Yellow); pH Urine 5.5 (5-7)
[2025-02-11 06:27] VITALS: BP 139/71; PULSE 81; RESP 16; O2SAT 96
[2025-02-11 06:28] LABS: Bacteria Urine None Seen /hpf; Hyaline Casts Urine 1.65 /lpf; RBC Urine 0-2 /hpf (0-2); Squamous Epithelial Cell Urine 0-5 /hpf (0-5); WBC Urine 0-5 /hpf (0-5)
== END 2025-02-11 06:27 | disposition home or self-care (01) ==
PROVIDERS: Emergency Provider Student in an Organized Health Care Education/Training Program; PCP Family Medicine
DX: R50.9 Fever, unspecified (principal); I12.9 Hypertensive chronic kidney disease with stage 1 through stage 4 chronic kidney disease, or unspecified chronic kidney disease; N18.9 Chronic kidney disease, unspecified; Z87.891 Personal history of nicotine dependence; Z11.52 Encounter for screening for COVID-19
CPT/HCPCS: 36415; 71045; 80053; 81001; 85025; 87637; 93005; 99285; J7030; J9999

== ENCOUNTER → 2025-03-02 11:59 | Outpatient (BNVA) | payer SELFPAY | PROVIDERS: PCP Family Medicine; Visit Provider Family Medicine | DX: N18.9 Chronic kidney disease, unspecified (principal) | CPT/HCPCS: 80048; 80069; 82310; 82570; 83970; 84156; 85007; 85027 ==

== ENCOUNTER → 2025-03-07 13:19 | Outpatient (BNVA) | payer SELFPAY | PROVIDERS: PCP Family Medicine; Visit Provider Family Medicine | DX: N18.9 Chronic kidney disease, unspecified (principal) | CPT/HCPCS: 80069 ==

== ENCOUNTER → 2025-03-28 13:02 | Outpatient (BNVA) | payer MEDICAID, SELFPAY | PROVIDERS: PCP Family Medicine; Visit Provider Family Medicine | DX: N18.4 Chronic kidney disease, stage 4 (severe) (principal) | CPT/HCPCS: 80048; 81000; 87086 ==

== ENCOUNTER → 2025-03-29 11:24 | Outpatient (BNVA) | payer MEDICAID, SELFPAY | PROVIDERS: PCP Family Medicine; Visit Provider Family Medicine | DX: S86.011A Strain of right Achilles tendon, initial encounter (principal); X58.XXXA Exposure to other specified factors, initial encounter | CPT/HCPCS: 73630 ==

== ENCOUNTER 2025-03-30 14:37 | Outpatient (CLI) | payer MEDICAID, SELFPAY ==
--- NOTE | 2025-03-30 14:45 | US_ITS ---
WS: [id number] ULTRASOUND SOFT TISSUES RIGHT Achilles tendon. HISTORY: S86.011A - Strain of right Achilles tendon, initial encou... COMPARISON: None available. TECHNIQUE: 2-D and color Doppler imaging is submitted. Limited evaluation of the Achilles tendon. There is a large amount of edema along the posterior ankle. The Achilles tendon is visualized appears to be intact. No tear or retraction. US/US soft tissue/extremity 18192 IMPRESSION: Unremarkable ultrasound appearance of the RIGHT Achilles tendon. If there is co ntinued concern for Achilles pathology consider MRI evaluation.
== END 2025-03-30 14:38 | disposition home or self-care (01) ==
PROVIDERS: PCP Family Medicine; Visit Provider Family Medicine
DX: S86.011A Strain of right Achilles tendon, initial encounter (principal); X58.XXXA Exposure to other specified factors, initial encounter
CPT/HCPCS: 76882

== ENCOUNTER → 2025-03-31 10:07 | Outpatient (BNVA) | payer MEDICAID, SELFPAY | PROVIDERS: PCP Family Medicine; Visit Provider Podiatrist Foot & Ankle Surgery | DX: S86.011A Strain of right Achilles tendon, initial encounter (principal); X58.XXXA Exposure to other specified factors, initial encounter | CPT/HCPCS: 99204 ==

== ENCOUNTER → 2025-04-13 10:27 | Outpatient (BNVA) | payer MEDICAID, SELFPAY | PROVIDERS: PCP Family Medicine; Visit Provider Podiatrist Foot & Ankle Surgery | DX: S86.011A Strain of right Achilles tendon, initial encounter (principal); X58.XXXA Exposure to other specified factors, initial encounter; Z91.199 Patient's noncompliance with other medical treatment and regimen due to unspecified reason | CPT/HCPCS: 99214 ==

== ENCOUNTER → 2025-05-09 13:13 | Outpatient (BNVA) | payer MEDICAID, SELFPAY | PROVIDERS: PCP Family Medicine; Visit Provider Family Medicine | DX: N18.9 Chronic kidney disease, unspecified (principal) | CPT/HCPCS: 80048; 80069; 83550; 85007; 85027 ==

== ENCOUNTER → 2025-05-10 09:58 | Outpatient (BNVA) | payer MEDICAID, SELFPAY | PROVIDERS: PCP Family Medicine; Visit Provider Podiatrist Foot & Ankle Surgery | DX: S86.011A Strain of right Achilles tendon, initial encounter (principal); X58.XXXA Exposure to other specified factors, initial encounter | CPT/HCPCS: 99213 ==

== ENCOUNTER → 2025-05-23 14:11 | Outpatient (BNVA) | payer MEDICAID, SELFPAY | PROVIDERS: PCP Family Medicine; Visit Provider Family Medicine | DX: N18.9 Chronic kidney disease, unspecified (principal); Z01.89 Encounter for other specified special examinations | CPT/HCPCS: 82043; 83550 ==

== ENCOUNTER → 2025-05-30 14:47 | Outpatient (BNVA) | payer MEDICAID, SELFPAY | PROVIDERS: PCP Family Medicine; Visit Provider Family Medicine | DX: I10 Essential (primary) hypertension (principal); N18.9 Chronic kidney disease, unspecified | CPT/HCPCS: 80048 ==